=== PATIENT | female | born 1990 | race Two or more races ===

== ENCOUNTER → 2024-12-13 | Outpatient (CLI) | payer MEDICAID | END | disposition home or self-care (01) | LOC: LAB 09:35 | DX: Z34.80 Encounter for supervision of other normal pregnancy, unspecified trimester (principal); Z3A.00 Weeks of gestation of pregnancy not specified | CPT/HCPCS: 36415; 84702 ==

== ENCOUNTER → 2024-12-16 | Outpatient (CLI) | payer MEDICAID | END | disposition home or self-care (01) | LOC: LAB 15:37 | DX: Z34.80 Encounter for supervision of other normal pregnancy, unspecified trimester (principal); Z3A.00 Weeks of gestation of pregnancy not specified | CPT/HCPCS: 36415; 84702 ==

== ENCOUNTER → 2024-12-20 | Outpatient (CLI) | payer MEDICAID ==
[2024-12-20 10:54] LABS: Basophils # (auto) 0 10 ^3/uL (0-0.2); Basophils % (auto) 0.6 % (0.0-2.0); Eosinophils # (auto) 0 10 ^3/uL (0-0.8); Eosinophils % (auto) 0.5 % (0.0-7.0); Hematocrit 49.5 % (36.0-46.0); Hemoglobin 16.6 g/dL (12.2-16.2); Lymphocytes # (auto) 1.3 10 ^3/uL (0.4-5.4); Mean Corpuscular Hemoglobin 30.7 pg (28.0-32.0); Mean Corpuscular Hgb Conc. 33.6 g/dL (32.0-36.0); Mean Corpuscular Volume 91.3 fL (80.0-100.0); Monocytes # (auto) 0.4 10 ^3/uL (0-1.3); Monocytes % (auto) 5.6 % (0.0-12.0); Neutrophils # (auto) 5.6 10 ^3/uL (1.6-8.6); Neutrophils % (auto) 75.3 % (37.0-80.0); Nucleated Red Blood Cells % 0.1 %; Platelet Count (auto) 296 10^3/uL (140-450); Red Blood Cells 5.42 10^6/uL (4.0-5.20); Red Cell Distribution Width 12.9 % (11.8-14.3); White Blood Cell 7.5 10^3/uL (4.4-10.8)
[2024-12-20 11:16] LABS: Alanine Aminotransferase 13 U/L (7-40); Alkaline Phosphatase 101 U/L (46-116); Anion Gap 10 (5-15); BUN/Creatinine Ratio 8.3 (10.0-20.0); Carbon Dioxide 25 mmol/L (20-31); Chloride 100 mmol/L (98-107)
[2024-12-20 11:23] LABS: Aspartate Aminotransferase 11 U/L (13-40); Blood Urea Nitrogen 6 mg/dL (9-23); Calcium 11.2 mg/dL (8.7-10.4); Glucose 74 mg/dL (74-106); Sodium 135 mmol/L (136-145); Total Protein 8.9 g/dL (5.7-8.2)
[2024-12-20 11:24] LABS: Albumin 5.8 g/dL (3.2-4.8)
[2024-12-20 11:25] LABS: Bilirubin, Total 0.6 mg/dL (0.2-1.0)
[2024-12-20 11:28] LABS: Amphetamine Screen, Urine Neg (NEGATIVE); Barbiturate Scree,Urine Neg (NEGATIVE); Benzodiazephine Screen, Urine Neg (NEGATIVE); Cannabinoid Screen, Urine Neg (NEGATIVE); Cocaine Screen, Urine Neg (NEGATIVE); Opiate Scree,Urine Neg (NEGATIVE); Phencyclidine Screen, Urine Neg (NEGATIVE)
[2024-12-21 10:07] LABS: Varicella Zoster IgG Antibody Reactive (Non Reactive)
[2024-12-21 13:07] LABS: Chlamydia Trachomatis, NAA Negative (Negative); Neisseria gonorrhoeae, NAA Negative (Negative)
== END | disposition home or self-care (01) ==
LOC: LAB 09:41
DX: O23.40 Unspecified infection of urinary tract in pregnancy, unspecified trimester (principal); Z31.430 Encounter of female for testing for genetic disease carrier status for procreative management; Z36.0 Encounter for antenatal screening for chromosomal anomalies; N39.0 Urinary tract infection, site not specified; Z3A.00 Weeks of gestation of pregnancy not specified
CPT/HCPCS: 36415; 80053; 80307; 83036; 84439; 84443; 85025; 86703; 86762; 86780; 86787; 86850; 86900; 86901; 87086; 87902

== ENCOUNTER 2024-12-31 09:20 | Emergency (ER) | payer OTHER, MEDICAID ==
[~2024-12-31] VITALS: Ht 170.2 cm; Wt 67.1 kg
--- NOTE | 2024-12-31 10:36 | ED.PDOC ---
Eye-HPI HPI Comments A 34 YEAR OLD FEMALE PRESENTS TO THE ED WITH COMPLAINT OF SORE THROAT. PATIENT STATES SHE IS CURRENTLY 8 WEEKS AND HAS BEEN EXPERIENCING A SORE THROAT, CONGESTION, MILD COUGH, AND BODY ACHES FOR THE PAST 5 DAYS. PATIENT REPORTS SHE HAS ALSO BEEN EXPERIENCING SMALL AND HARD BOWEL MOVEMENTS FOR THE PAST 6 DAYS. PATIENT DENIES DYSURIA, HEMATURIA, FEVER, CHILLS, SHORTNESS OF BREATH, CHEST PAIN, ABDOMINAL PAIN, NAUSEA, VOMITING, HEADACHE, OR OTHER CO MPLAINTS. NO OTHER SYMPTOMS OR MODIFYING FACTORS AT THIS TIME. PATIENT IS ALERT, ORIENTED X 4, AND HAS STEADY GAIT. Chief Complaint: Flu like Time Seen by MD: 09:52 Reviewed Notes: Nurses Notes, Medications, Allergies Allergies: Coded Allergies: Azithromycin (Verified Allergy, Unknown, 12/31/24) Penicillins (Verified Allergy, Unknown, 12/31/24) Promethazine (Verified Allergy, Unknown, 12/31/24) Home Meds Active Scripts Lactulose (Lactulose) 10 Gm/15 Ml Melody, 30 ML PO BID, #250 ML Prov:NATALIE CAZARES 12/31/24 Cephalexin Monohydrate (Cephalexin) 500 Mg Cap, 1 CAP PO QID, #28 CAP Prov:NATALIE CAZARES 12/31/24 Information Source: Patient Mode of Arrival: Ambulatory Timing: Days Duration: Since onset, Days Prehospital treatment: None Quality: Pain, Red Lids: Normal Conjunctiva: Normal Cornea: Normal Pupils: Normal EOM: Normal Fundus: Normal Slit lamp exam: Normal Anterior chamber: Normal Mouth Location: Pharynx Mouth: Normal ENT Ear Exam: Normal, Normal, Normal Nose: Normal Sinuses: Normal Oropharynx: Tonsillar hypertrophy, Red Onset: Spontaneous Throat Exposed to: None History of: None Modifying factors: Nothing Associated signs and symptoms: Chills, Nasal Symptoms, Sore Throat Past Medical History PAST MEDICAL HISTORY: Denies Surgical History: Denies all surgeries OUT AND OUT CIGAR MAKER HAND History: No Pertinent OUT AND OUT CIGAR MAKER HAND History Family History Family History: Reviewed,noncontributory to illness Social History Smoker: Non-Smoker Alcohol: Denies ETOH Use Drugs: Denies Drug Use Lives In: Home Constitutional: denies: chills, diaphoresis, fatigue, fever, malaise, sweats, weakness, others EENTM: reports: nose congestion, throat pain, throat swelling; denies: blurred vision, double vision, ear bleeding, ear discharge, ear drainage, ear pain, ear ringing, eye pain, eye redness, hearing loss, mouth pain, mouth swelling, nasal discharge, nose bleeding, nose pain, photophobia, tearing, voice changes, others Respiratory: reports: cough; denies: hemoptysis, orthopnea, SOB at rest, shortness of breath, SOB with excertion, stridor, wheezing, others Cardiovascular: denies: chest pain, dizzy spells, diaphoresis, Dyspnea on exertion, edema, irregular heart beat, left arm pain, lightheadedness, palpitations, PND, syncope, others Gastrointestinal: reports: constipated; denies: abdomen distended, abdominal pain, blood streaked bowels, diarrhea, dysphagia, difficulty swallowing, hematemesis, melena, nausea, poor appetite, poor fluid intake, rectal bleeding, rectal pain, vomiting, others Genitourinary: reports: ; denies: abnormal vagina bleeding, burning, dyspareunia, dysuria, flank pain, frequency, hematuria, incontinence, pain, vagina discharge, urgency, others Neurological: denies: dizziness, fainting, headache, left sided numbness, left sided weakness, numbness, paresthesia, pre-existing deficit, right sided numbness, right sided weakness, seizure, speech problems, tingling, tremors, weakness, others Musculoskeletal: denies: back pain, gout, joint pain, joint swelling, muscle pain, muscle stiffness, neck pain, others Integumetry: denies: bruises, change in color, change in hair/nails, dryness, laceration, lesions, lumps, rash, wounds, others Allergic/Immunocompromised: denies: Difficulty Healing, Frequent Infections, Hives, Itching, others Hematologic/Lymphatic: denies: anemia, blood clots, easy bleeding, easy bruising, swollen glands, others Endocrine: denies: excessive hunger, excessive sweating, excessive thirst, excessive urination, flushing, intolerance to cold, intolerance to heat, unexplained weight gain, unexplained weight loss, others Psychiatric: denies: anxiety, bipolar disorder, depression, hopeless, panic disorder, schizophrenia, sleepless, suicidal, others All Other Systems: Reviewed and Negative Physical Exam General Appearance: No Apparent Distress, Normal HEENT: PERRL/EOMI, Pharyngeal Erythema (TONSILLAR SWELLING, NO EXUDATES. ), TMs Normal Neck: Full Range of Motion, Non-Tender, Normal, Normal Inspection Respiratory: Chest Non-Tender, Lungs Clear, No Accessory Muscle Use, No Respiratory Distress, Normal Breath Sounds Cardiovascular: No Edema, No JVD, No Murmur, No Gallop, Normal Peripheral Pulses, Regular Rate/Rhythm Breast Exam: Deferred Gastrointestinal: No Organomegaly, Non Tender, No Pulsatile Mass, Normal Bowel Sounds, Soft Genitalia: Deferred Pelvic: Deferred Rectal: Deferred Extremities: No calf tenderness, Normal capillary refill, Normal inspection, Normal range of motion, Non-tender, No pedal edema Musculoskeletal : Apperance: Normal Neurologic: Alert, case work aide II-XII nml as Tested, No Motor Deficits, Normal Affect, Normal Mood, No Sensory Deficits Cerebellar Function: Normal Reflexes: Normal Skin: Dry, Normal Color, Warm Peripheral Pulses: 2+ carotid (R), 2+ carotid (L) Lymphatic: No Adenopathy Was a procedure done? Was a procedure done?: No EENT DIFF Eye: N/A Ear: Otitis Media, Pharyngitis, Sinusitis Nose: N/A Mouth: N/A Sore Throat: Pharyngitis, Streptococcal, Viral Pharyngitis, URI X-Ray, Labs, Meds, VS Vital Signs Date Time Temp Pulse Resp B/P (MAP) Pulse Ox O2 Delivery O2 Flow Rate FiO2 12/31/24 10:58 98.7 87 16 105/68 (80) 97 98.7 12/31/24 10:58 78 17 98 Room Air 12/31/24 09:51 99.0 90 18 91/67 (75) 97 99.0 Lab Test 12/31/24 11:45 12/31/24 11:30 12/31/24 10:47 Range/Units White Blood Count 4.9 4.4-10.8 10^3/uL Red Blood Count 4.98 4.0-5.20 10^6/uL Hemoglobin 15.1 12.2-16.2 g/dL Hematocrit 44.7 36.0-46.0 % Mean Corpuscular Volume 89.8 80.0-100.0 fL Mean Corpuscular Hemoglobin 30.4 28.0-32.0 pg Mean Corpuscular Hemoglobin Concent 33.8 32.0-36.0 g/dL Red Cell Distribution Width 12.7 11.8-14.3 % Platelet Count 291 140-450 10^3/uL Mean Platelet Volume 8.1 6.9-10.8 fL Neutrophils (%) (Auto) 68.6 37.0-80.0 % Lymphocytes (%) (Auto) 22.1 10.0-50.0 % Monocytes (%) (Auto) 8.6 0.0-12.0 % Eosinophils (%) (Auto) 0.3 0.0-7.0 % Basophils (%) (Auto) 0.4 0.0-2.0 % Neutrophils # (Auto) 3.4 1.6-8.6 10 ^3/uL Lymphocytes # (Auto) 1.1 0.4-5.4 10 ^3/uL Monocytes # (Auto) 0.4 0-1.3 10 ^3/uL Eosinophils # (Auto) 0 0-0.8 10 ^3/uL Basophils # (Auto) 0 0-0.2 10 ^3/uL Nucleated Red Blood Cells 0.1 % Sodium Level 137 136-145 mmol/L Potassium Level 3.8 3.5-5.1 mmol/L Chloride Level 105 98-107 mmol/L Carbon Dioxide Level 23 20-31 mmol/L Anion Gap 9 5-15 Blood Urea Nitrogen 5 L 9-23 mg/dL Creatinine 0.64 0.550-1.02 mg/dL Glomerular Filtration Rate Calc 119 >90 mL/min BUN/Creatinine Ratio 7.8 L 10.0-20.0 Serum Glucose 85 74-106 mg/dL Calcium Level 9.8 8.7-10.4 mg/dL Urine Color Light-yellow Yellow Urine Clarity Turbid H Clear Urine pH 7.0 5.0-9.0 Urine Specific [place] 1.023 1.001-1.035 Urine Protein Negative Negative Urine Ketones Trace Negative Urine Blood Negative Negative /uL Urine Nitrite 2+ H Negative Urine Bilirubin Negative Negative Urine Urobilinogen Normal Negative mg/dL Urine Leukocyte Esterase 3+ Negative /uL Urine RBC 4 0 - 4 /hpf Urine Microscopic WBC 101 H 0-5 /HPF Urine Squamous Epithelial Cells Few <5 /hpf Urine Bacteria Few H None Seen /hpf Urine Mucus Few None Seen Urine Glucose Normal Normal mg/dL Influenza Type A Antigen Negative Negative Influenza Type B Antigen Negative Negative SARS-CoV-2 Antigen (Rapid) Negative NEGATIVE Group A Streptococcus Rapid Negative Current Medications Medications (Trade) Dose Ordered Sig/Amirah Route Start Time Stop Time Status Last Admin Sodium Chloride 1,000 ml @ 1,000 mls/hr Q1H ONCE IV 12/31/24 11:00 12/31/24 11:59 DC 12/31/24 11:02 Ondansetron HCl (Zofran) 4 mg ONCE ONCE IV 12/31/24 11:30 12/31/24 11:31 DC 12/31/24 11:58 X-Ray, Labs, Meds, VS Comment EXTERNAL MEDICAL RECORDS REVIEWED: [NONE] INDEPENDENT HISTORIANS: [NONE] SOCIAL DETERMINANTS OF HEALTH: [NONE] LABS ORDERED: COVID-19 ANTIGEN, INFLUENZA A/B, STREP A RAPID REVIEWED AND INTERPRETED RESULTS: IMAGING ORDERED: NONE TREATMENTS ORDERED: ROCEPHIN 1 G IM, 0.9NS 1L IV BOLUS PROCEDURES PERFORMED: NONE CRITICAL CARE TIME: NONE I HAVE DISCUSSED THE PATIENT WITH THE ATTENDING PHYSICIAN DR. GATES AND SHE AGREES WITH THE PATIENT'S PLAN OF CARE AND DISPOSITION. BASED ON HISTORY OF PRESENT ILLNESS, AND PHYSICAL EXAM, PATIENT WILL BE DISCHARGED HOME. DISCUSSED PLAN FOR DISCHARGE HOME WITH RX: KEFLEX AND LACTULOSE. MEDICATION WARNINGS GIVEN. SHARED DECISION MAKING: PATIENT INSTRUCTED TO FOLLOW UP WITH PRIMARY CARE PROVIDER IN 1-2 DAYS FOR RE-EVALUATION OF SYMPTOMS. PATIENT VERBALIZES UNDERSTANDING TO RETURN TO ED FOR NEW OR WORSENING SYMPTOMS OR IF FOLLOW UP WITH PCP CANNOT BE OBTAINED. PATIENT FEELS COMFORTABLE GOING HOME AT THIS TIME. ALL QUESTIONS ADDRESSED AT TIME OF DISCHARGE. Time of 1ST Reevaluation: 13:00 Reevaluation 1ST: Improved Patient Education/Counseling: Diagnosis, Treatment, Need For Follow Up Family Education/Counseling: Diagnosis, Treatment, Need For Follow Up Medical Screening: No EMC Exist At This Time Departure 1 Departure Time of Disposition: 13:00 Impression: Primary Impression: Acute tonsillitis Qualified Codes: J03.90 - Acute tonsillitis, unspecified Additional Impression: UTI (urinary tract infection) Qualified Codes: N30.00 - Acute cystitis without hematuria Disposition: 01 HOME / SELF CARE / HOMELESS Condition: Stable Additional Instructions: FOLLOW-UP WITH PCP AND FOOD MIXER REPAIRER IN 1 TO 2 DAYS. TAKE MEDICATIONS PRESCRIBED. RETURN TO ED FOR ANY NEW OR WORSENING SYMPTOMS. e-Prescriptions Lactulose (Lactulose) 10 Gm/15 Ml Melody 30 ML PO BID, #250 ML Prov: NATALIE CAZARES 12/31/24 Cephalexin Monohydrate (Cephalexin) 500 Mg Cap 1 CAP PO QID, #28 CAP Prov: NATALIE CAZARES 12/31/24 Discharged With: Self Critical Care Note Critical Care Time?: No Stability Stability form required: No I personally scribed for NATALIE CAZARES ([email or web address]) on 12/31/24 at 10:36. Electronically submitted by lAl Rivas ([email or web address]). NATALIE CAZARES Dec 31, 2024 10:36
[2024-12-31 10:58] VITALS: BP 105/68; PULSE 78; RESP 17; TEMP 98.7; O2SAT 98
[2024-12-31] MEDS: SODIUM CHLORIDE 0.9% 1,000 ML IV ONE (11:02)
[2024-12-31 11:55] LABS: Rapid Strep A Screen-Throat Negative
[2024-12-31 11:56] LABS: Urine Bacteria FEW /hpf (None Seen); Urine Blood Negative /uL (Negative); Urine Clarity Turbid (Clear); Urine Color Light-Yellow (Yellow); Urine Mucus FEW (None Seen); Urine Protein, UAD Negative (Negative); Urine Specific Gravity 1.023 (1.001-1.035); Urine Squamous Epithelial Cell FEW /hpf (<5); Urine Urobilinogen Normal (Negative); Urine WBC 101 /HPF (0-5)
[2024-12-31] MEDS: ONDANSETRON HCL 4 MG/2 ML VIAL IV ONE (11:58)
[2024-12-31 12:02] LABS: COVID19 ANTIGEN SOFIA FIA NEGATIVE (NEGATIVE)
[2024-12-31 12:03] LABS: Rapid Influenza A Negative (Negative); Rapid Influenza B Negative (Negative)
[2024-12-31 12:09] LABS: Chloride 105 mmol/L (98-107); Potassium 3.8 mmol/L (3.5-5.1); Sodium 137 mmol/L (136-145)
[2024-12-31 12:10] LABS: Anion Gap 9 (5-15); Calcium 9.8 mg/dL (8.7-10.4); Carbon Dioxide 23 mmol/L (20-31)
[2024-12-31 12:15] LABS: BUN/Creatinine Ratio 7.8 (10.0-20.0); Glucose 85 mg/dL (74-106)
[2024-12-31 12:16] LABS: Blood Urea Nitrogen 5 mg/dL (9-23)
[2024-12-31 12:32] LABS: Basophils # (auto) 0 10 ^3/uL (0-0.2); Basophils % (auto) 0.4 % (0.0-2.0); Eosinophils # (auto) 0 10 ^3/uL (0-0.8); Eosinophils % (auto) 0.3 % (0.0-7.0); Hematocrit 44.7 % (36.0-46.0); Hemoglobin 15.1 g/dL (12.2-16.2); Lymphocytes # (auto) 1.1 10 ^3/uL (0.4-5.4); Lymphocytes % (auto) 22.1 % (10.0-50.0); Mean Corpuscular Hemoglobin 30.4 pg (28.0-32.0); Mean Corpuscular Hgb Conc. 33.8 g/dL (32.0-36.0); Mean Corpuscular Volume 89.8 fL (80.0-100.0); Monocytes # (auto) 0.4 10 ^3/uL (0-1.3); Monocytes % (auto) 8.6 % (0.0-12.0); Neutrophils # (auto) 3.4 10 ^3/uL (1.6-8.6); Neutrophils % (auto) 68.6 % (37.0-80.0); Nucleated Red Blood Cells % 0.1 %; Platelet Count (auto) 291 10^3/uL (140-450); Red Blood Cells 4.98 10^6/uL (4.0-5.20); Red Cell Distribution Width 12.7 % (11.8-14.3); White Blood Cell 4.9 10^3/uL (4.4-10.8)
[2024-12-31] MEDS: cefTRIAXone 1GM/50ML D5W 50 ML IV ONE (12:37)
[2024-12-31] MEDS ORDERED: CEPH500C PO (12:41)
[2024-12-31] MEDS ORDERED: LACT10SO3 PO (12:41)
== END 2024-12-31 13:00 | disposition home or self-care (01) ==
LOC: ER 09:20
DX: O99.511 Diseases of the respiratory system complicating pregnancy, first trimester (principal); J03.90 Acute tonsillitis, unspecified; O23.41 Unspecified infection of urinary tract in pregnancy, first trimester; N39.0 Urinary tract infection, site not specified; Z3A.08 8 weeks gestation of pregnancy; Z88.0 Allergy status to penicillin; Z88.1 Allergy status to other antibiotic agents; Z88.8 Allergy status to other drugs, medicaments and biological substances; Z20.822 Contact with and (suspected) exposure to COVID-19
CPT/HCPCS: 36415; 80048; 81001; 85025; 87070; 87426; 87804; 87880; 96361; 96374; 99283; J2405; J7030

== ENCOUNTER 2025-01-06 09:48 | Emergency (ER) | payer OTHER, MEDICAID ==
[~2025-01-06] VITALS: Ht 170.2 cm; Wt 67.5 kg
[~2025-01-06 09:48] MED LIST: CEPH500C PO; LACT10SO3 PO
--- NOTE | 2025-01-06 10:50 | ED.PDOC ---
GI ASSESSMENT HPI Comments A 34 YEAR OLD FEMALE PRESENTS TO THE ED WITH CHIEF COMPLAINT OF CONSTIPATION. PATIENT REPORTS THAT SHE HAS BEEN EXPERIENCING NAUSEA, VOMITING, AND CONSTIPATION FOR THE PAST WEEK. PATIENT RELAYS THAT SHE WAS SEEN LAST WEEK FOR THE SAME COMPLAINTS, BEING PRESCRIBED KEFLEX FOR A UTI AND LACTULOSE FOR HER CONSTIPATION, BUT STILL NO BOWEL MOVEMENT SINCE THEN. PATIENT STATES THAT SHE HAD NOTICED THAT THIS MORNING HER VOMIT HAD TASTED LIKE STOOL. PATIENT NOTES SHE IS CURRENTLY 9 WEEKS . PATIENT DENIES ANY DIARRHEA, FEVER, CHILLS, ABDOMINAL PAIN, VOMITING OF BLOOD, DIZZINESS, OR HEADACHE. NO OTHER SYMPTOMS REPORTED AT THIS TIME OF CARE. Chief Complaint: Constipation Time Seen by MD: 10:38 Primary Care Provider: LAY Mcnamara Notes: Nurses Notes, Medications, Allergies Allergies: Coded Allergies: Azithromycin (Verified Allergy, Unknown, 12/31/24) Penicillins (Verified Allergy, Unknown, 12/31/24) Promethazine (Verified Allergy, Unknown, 12/31/24) Home Meds Active Scripts Lactulose (Lactulose) 10 Gm/15 Ml Melody, 30 ML PO BID, #250 ML Prov:NATALIE CAZARES 12/31/24 Cephalexin Monohydrate (Cephalexin) 500 Mg Cap, 1 CAP PO QID, #28 CAP Prov:NATALIE CAZARES 12/31/24 Information Source: Patient Mode of Arrival: Ambulatory Timing: Days Duration: Since onset Prehospital treatment: None Quality: Cramping Vomitus: Watery, Other (BROWN) Stool: Impaction Severity: Moderate Recent: None Recent Hx of: Current Pain Location: None Modifying Factors: Nothing Associated sign and symptoms: Nausea, Vomiting, Constipation Past Medical History PAST MEDICAL HISTORY: Denies Surgical History: Denies all surgeries GRANT MANAGER History: No Pertinent GRANT MANAGER History Family History Family History: Reviewed,noncontributory to illness Social History Smoker: Non-Smoker Alcohol: Denies ETOH Use Drugs: Denies Drug Use Lives In: Home Constitutional: denies: chills, diaphoresis, fatigue, fever, malaise, sweats, weakness, others EENTM: denies: blurred vision, double vision, ear bleeding, ear discharge, ear drainage, ear pain, ear ringing, eye pain, eye redness, hearing loss, mouth pain, mouth swelling, nasal discharge, nose bleeding, nose congestion, nose pain, photophobia, tearing, throat pain, throat swelling, voice changes, others Respiratory: denies: cough, hemoptysis, orthopnea, SOB at rest, shortness of breath, SOB with excertion, stridor, wheezing, others Cardiovascular: denies: chest pain, dizzy spells, diaphoresis, Dyspnea on exertion, edema, irregular heart beat, left arm pain, lightheadedness, palpitations, PND, syncope, others Gastrointestinal: reports: constipated, nausea, vomiting; denies: abdomen distended, abdominal pain, blood streaked bowels, diarrhea, dysphagia, difficulty swallowing, hematemesis, melena, poor appetite, poor fluid intake, rectal bleeding, rectal pain, others Genitourinary: reports: ; denies: abnormal vagina bleeding, burning, dyspareunia, dysuria, flank pain, frequency, hematuria, incontinence, pain, vagina discharge, urgency, others Neurological: denies: dizziness, fainting, headache, left sided numbness, left sided weakness, numbness, paresthesia, pre-existing deficit, right sided numbness, right sided weakness, seizure, speech problems, tingling, tremors, weakness, others Musculoskeletal: denies: back pain, gout, joint pain, joint swelling, muscle pain, muscle stiffness, neck pain, others Integumetry: denies: bruises, change in color, change in hair/nails, dryness, laceration, lesions, lumps, rash, wounds, others Allergic/Immunocompromised: denies: Difficulty Healing, Frequent Infections, Hives, Itching, others Hematologic/Lymphatic: denies: anemia, blood clots, easy bleeding, easy bruising, swollen glands, others Endocrine: denies: excessive hunger, excessive sweating, excessive thirst, excessive urination, flushing, intolerance to cold, intolerance to heat, unexplained weight gain, unexplained weight loss, others Psychiatric: denies: anxiety, bipolar disorder, depression, hopeless, panic disorder, schizophrenia, sleepless, suicidal, others All Other Systems: Reviewed and Negative Physical Exam General Appearance: No Apparent Distress, Normal HEENT: Normal ENT Inspection, PERRL/EOMI, Pharynx Normal Neck: Full Range of Motion, Non-Tender, Normal, Normal Inspection Respiratory: Chest Non-Tender, Lungs Clear, No Accessory Muscle Use, No Respiratory Distress, Normal Breath Sounds Cardiovascular: No Edema, No JVD, No Murmur, No Gallop, Normal Peripheral Pulses, Regular Rate/Rhythm Breast Exam: Deferred Gastrointestinal: No Organomegaly, Non Tender, No Pulsatile Mass, Normal Bowel Sounds, Soft Genitalia: Deferred Pelvic: Deferred Rectal: Deferred Extremities: No calf tenderness, Normal capillary refill, Normal inspection, Normal range of motion, Non-tender, No pedal edema Musculoskeletal : Apperance: Normal Neurologic: Alert, grants administrator II-XII nml as Tested, No Motor Deficits, Normal Affect, Normal Mood, No Sensory Deficits Cerebellar Function: Normal Reflexes: Normal Skin: Dry, Normal Color, Warm Peripheral Pulses: 2+ carotid (R), 2+ carotid (L) Lymphatic: No Adenopathy Was a procedure done? Was a procedure done?: No GI differential Dx Differential Diagnosis: Constipation, Gastritis/PUD, Gastroenteritis, UTI, , Other (VOMITING OF ) X-Ray, Labs, Meds, VS Vital Signs Date Time Temp Pulse Resp B/P (MAP) Pulse Ox O2 Delivery O2 Flow Rate FiO2 01/06/25 10:54 84 18 97 Room Air 01/06/25 10:54 98.4 84 18 110/62 (78) 97 98.4 01/06/25 10:23 98.2 91 17 101/59 (73) 96 98.2 Lab Test 01/06/25 11:21 01/06/25 10:44 Range/Units Urine Color Yellow Yellow Urine Clarity Clear Clear Urine pH 7.0 5.0-9.0 Urine Specific [place] 1.025 1.001-1.035 Urine Protein Negative Negative Urine Ketones Trace Negative Urine Blood Negative Negative /uL Urine Nitrite Negative Negative Urine Bilirubin Negative Negative Urine Urobilinogen Normal Negative mg/dL Urine Leukocyte Esterase 2+ Negative /uL Urine RBC 3 0 - 4 /hpf Urine Microscopic WBC 10 H 0-5 /HPF Urine Squamous Epithelial Cells Few <5 /hpf Urine Bacteria Few H None Seen /hpf Urine Mucus Few None Seen Urine Glucose Normal Normal mg/dL White Blood Count 7.5 # 4.4-10.8 10^3/uL Red Blood Count 4.76 4.0-5.20 10^6/uL Hemoglobin 14.5 12.2-16.2 g/dL Hematocrit 42.6 36.0-46.0 % Mean Corpuscular Volume 89.5 80.0-100.0 fL Mean Corpuscular Hemoglobin 30.5 28.0-32.0 pg Mean Corpuscular Hemoglobin Concent 34.1 32.0-36.0 g/dL Red Cell Distribution Width 12.8 11.8-14.3 % Platelet Count 304 140-450 10^3/uL Mean Platelet Volume 7.6 6.9-10.8 fL Neutrophils (%) (Auto) 76.0 37.0-80.0 % Lymphocytes (%) (Auto) 16.3 10.0-50.0 % Monocytes (%) (Auto) 7.1 0.0-12.0 % Eosinophils (%) (Auto) 0.3 0.0-7.0 % Basophils (%) (Auto) 0.3 0.0-2.0 % Neutrophils # (Auto) 5.7 1.6-8.6 10 ^3/uL Lymphocytes # (Auto) 1.2 0.4-5.4 10 ^3/uL Monocytes # (Auto) 0.5 0-1.3 10 ^3/uL Eosinophils # (Auto) 0 0-0.8 10 ^3/uL Basophils # (Auto) 0 0-0.2 10 ^3/uL Nucleated Red Blood Cells 0.0 % Sodium Level 134 L 136-145 mmol/L Potassium Level 4.2 3.5-5.1 mmol/L Chloride Level 105 98-107 mmol/L Carbon Dioxide Level 25 20-31 mmol/L Anion Gap 4 L 5-15 Blood Urea Nitrogen 7 L 9-23 mg/dL Creatinine 0.64 0.550-1.02 mg/dL Glomerular Filtration Rate Calc 119 >90 mL/min BUN/Creatinine Ratio 10.9 10.0-20.0 Serum Glucose 81 74-106 mg/dL Calcium Level 10.6 H 8.7-10.4 mg/dL Beta HCG, Quantitative > 744798.0 H 1.5-4.2 mIU/mL Current Medications Medications (Trade) Dose Ordered Sig/Amirah Route Start Time Stop Time Status Last Admin Sodium Chloride 1,000 ml @ 1,000 mls/hr Q1H ONCE IV 01/06/25 11:00 01/06/25 11:59 DC 01/06/25 11:17 OB US: FINDINGS: The uterus measures 13 x 7 x 10 cm The cervix was not seen Right ovary measures 2 x 2 x 1 cm with normal Doppler color flow IUP single live fetus at 10 weeks 1 day average ultrasound age based on mean crown-rump length of 2.5 cm and gestational sac size of 5.2 cm heart rate detected at 176 beats per minute. IMPRESSION: IUP single live fetus 10 weeks 1 day AUA corresponding to an LENORE of 08-03-25. No acute abnormality detected. Possible 2 cm fibroid noted. X-Ray, Labs, Meds, VS Comment EXTERNAL MEDICAL RECORDS REVIEWED: [NONE] INDEPENDENT HISTORIANS: [NONE] SOCIAL DETERMINANTS OF HEALTH: [NONE] LABS ORDERED: CBC, BMP, UA, UDS REVIEWED AND INTERPRETED RESULTS: OB US IMAGING ORDERED: OB US TREATMENTS ORDERED: NS 1L IV, ZOFRAN 4MG IV AND ROCEPHIN 1GM IVPB PROCEDURES PERFORMED: NONE CRITICAL CARE TIME: NONE I HAVE DISCUSSED THE PATIENT WITH THE ATTENDING PHYSICIAN DR. STEPHENS AND HE AGREES WITH THE PATIENT'S PLAN OF CARE AND DISPOSITION. BASED ON HISTORY OF PRESENT ILLNESS, AND PHYSICAL EXAM, PATIENT WILL BE DISCHARGED HOME. DISCUSSED PLAN FOR DISCHARGE HOME WITH RX [ZOFRAN AND LACTULOSE]. MEDICATION WARNINGS GIVEN. SHARED DECISION MAKING: DISCUSSED WITH PATIENT THAT THEIR WORKUP WAS NORMAL. PATIENT INSTRUCTED TO FOLLOW UP WITH PRIMARY CARE PROVIDER IN 1-2 DAYS FOR RE-EVALUATION OF SYMPTOMS. PATIENT VERBALIZES UNDERSTANDING TO RETURN TO ED FOR NEW OR WORSENING SYMPTOMS OR IF FOLLOW UP WITH PCP CANNOT BE OBTAINED. PATIENT FEELS COMFORTABLE GOING HOME AT THIS TIME. ALL QUESTIONS ADDRESSED AT TIME OF DISCHARGE. Time of 1ST Reevaluation: 11:38 Reevaluation 1ST: Improved Patient Education/Counseling: Diagnosis, Treatment, Need For Follow Up Family Education/Counseling: Diagnosis, Treatment, No Family Present Medical Screening: No EMC Exist At This Time Departure 1 Departure Time of Disposition: 13:00 Impression: Primary Impression: Hyperemesis of Additional Impressions: Constipation Qualified Codes: K59.00 - Constipation, unspecified Normal in first trimester Uterine fibroid Qualified Codes: D25.9 - Leiomyoma of uterus, unspecified UTI (urinary tract infection) Qualified Codes: N30.00 - Acute cystitis without hematuria Disposition: 01 HOME / SELF CARE / HOMELESS Condition: Stable Additional Instructions: FOLLOW-UP WITH NEWS SPECIALIST IN 1 TO 2 DAYS. TAKE MEDICATIONS PRESCRIBED. RETURN TO ED FOR ANY NEW OR WORSENING SYMPTOMS. e-Prescriptions Lactulose (Lactulose) 10 Gm/15 Ml Melody 30 ML PO BID PRN, #300 ML Prov: NATALIE CAZARES 01/06/25 Ondansetron Odt 4MG Tab (ZOFRAN PO) 4 Mg Tb 4 MG PO BID, #20 TAB ODT TAB-DISSOLVE IN MOUTH, THEN SWALLOW Prov: NATALIE CAZARES 01/06/25 Discharged With: Self Critical Care Note Critical Care Time?: No Stability Stability form required: No Heart Score Heart Score: Heart Score Response (Comments) Value History N/A 0 EKG N/A 0 Age N/A 0 Risk Factors N/A 0 Troponin N/A 0 Total 0 I personally scribed for NATALIE CAZARES ([email or web address]) on 01/06/25 at 10:50. Electronically submitted by Chuck Sylvester ([email or web address]). I personally scribed for NATALIE CAZARES ([email or web address]) on 01/06/25 at 10:50. Electronically submitted by Chuck Sylvester ([email or web address]). I personally scribed for NATALIE CAZARES ([email or web address]) on 01/06/25 at 12:18. Electronically submitted by Chuck Sylvester ([email or web address]). NATALIE CAZARES January 06, 2025 10:50
[2025-01-06 11:02] LABS: Basophils # (auto) 0 10 ^3/uL (0-0.2); Basophils % (auto) 0.3 % (0.0-2.0); Eosinophils # (auto) 0 10 ^3/uL (0-0.8); Eosinophils % (auto) 0.3 % (0.0-7.0); Hematocrit 42.6 % (36.0-46.0); Hemoglobin 14.5 g/dL (12.2-16.2); Lymphocytes # (auto) 1.2 10 ^3/uL (0.4-5.4); Lymphocytes % (auto) 16.3 % (10.0-50.0); Mean Corpuscular Hemoglobin 30.5 pg (28.0-32.0); Mean Corpuscular Hgb Conc. 34.1 g/dL (32.0-36.0); Mean Corpuscular Volume 89.5 fL (80.0-100.0); Monocytes # (auto) 0.5 10 ^3/uL (0-1.3); Monocytes % (auto) 7.1 % (0.0-12.0); Neutrophils # (auto) 5.7 10 ^3/uL (1.6-8.6); Platelet Count (auto) 304 10^3/uL (140-450); Red Blood Cells 4.76 10^6/uL (4.0-5.20); Red Cell Distribution Width 12.8 % (11.8-14.3); White Blood Cell 7.5 10^3/uL (4.4-10.8)
[2025-01-06 11:06] LABS: Chloride 105 mmol/L (98-107); Potassium 4.2 mmol/L (3.5-5.1)
[2025-01-06 11:07] LABS: Anion Gap 4 (5-15); Carbon Dioxide 25 mmol/L (20-31)
[2025-01-06 11:08] LABS: Calcium 10.6 mg/dL (8.7-10.4); Sodium 134 mmol/L (136-145)
[2025-01-06 11:12] LABS: BUN/Creatinine Ratio 10.9 (10.0-20.0); Blood Urea Nitrogen 7 mg/dL (9-23); Glucose 81 mg/dL (74-106)
[2025-01-06] MEDS: ONDANSETRON HCL 4 MG/2 ML VIAL IV ONE (11:17)
[2025-01-06] MEDS: SODIUM CHLORIDE 0.9% 1,000 ML IV ONE (11:17)
--- NOTE | 2025-01-06 12:11 | DVH ---
OB ULTRASOUND <14 WEEKS: HISTORY: PELVIC CRAMPS WITH CONSTIPATION TECHNIQUE: Multiple real-time grayscale sonographic images of the pelvis with duplex Doppler color f low, spectral and M-mode analysis. TRANSDUCERS: Transabdominal FINDINGS: The uterus measures 13 x 7 x 10 cm The cervix was not seen Right ovary measures 2 x 2 x 1 cm with normal Doppler color flow IUP single live fetus at 10 weeks 1 day average ultrasound age based on mean crown-rump length of 2. 5 cm and gestational sac size of 5.2 cm heart rate detected at 176 beats per minute. IMPRESSION: IUP single live fetus 10 weeks 1 day AUA corresponding to an LENORE of 11-26-25. No acute abnormality detected. Possible 2 cm fibroid noted.
[2025-01-06 12:15] LABS: Urine Bacteria FEW /hpf (None Seen); Urine Blood Negative /uL (Negative); Urine Clarity Clear (Clear); Urine Color Yellow (Yellow); Urine Mucus FEW (None Seen); Urine Protein, UAD Negative (Negative); Urine Specific Gravity 1.025 (1.001-1.035); Urine Squamous Epithelial Cell FEW /hpf (<5); Urine Urobilinogen Normal (Negative); Urine WBC 10 /HPF (0-5)
[2025-01-06] MEDS: cefTRIAXone SOD 1,000 MG VL IM ONE (12:27)
[2025-01-06] MEDS ORDERED: ZOFR4T PO (12:50)
[2025-01-06 13:10] VITALS: BP 108/74; PULSE 88; RESP 16; TEMP 97.9; O2SAT 97
== END 2025-01-06 13:08 | disposition home or self-care (01) ==
LOC: ER 09:48
DX: O21.9 Vomiting of pregnancy, unspecified (principal); O34.11 Maternal care for benign tumor of corpus uteri, first trimester; D25.9 Leiomyoma of uterus, unspecified; O99.611 Diseases of the digestive system complicating pregnancy, first trimester; K59.00 Constipation, unspecified; O23.41 Unspecified infection of urinary tract in pregnancy, first trimester; N39.0 Urinary tract infection, site not specified; Z3A.10 10 weeks gestation of pregnancy; Z88.0 Allergy status to penicillin; Z88.1 Allergy status to other antibiotic agents
CPT/HCPCS: 36415; 76801; 80048; 81001; 84702; 85025; 96360; 99284; J2405; J7030; J0696

== ENCOUNTER → 2025-01-17 | Outpatient (CLI) | payer OTHER, MEDICAID ==
[~2025-01-17] MED LIST changes: +ZOFR4T PO
== END | disposition home or self-care (01) ==
LOC: LAB 09:40
DX: Z34.81 Encounter for supervision of other normal pregnancy, first trimester (principal); Z3A.10 10 weeks gestation of pregnancy; Z79.899 Other long term (current) drug therapy
CPT/HCPCS: 36415; 84443; 86850; 86900; 86901; 87340

== ENCOUNTER 2025-01-25 12:19 | Emergency (ER) | payer OTHER, MEDICAID ==
[~2025-01-25] VITALS: Ht 170.2 cm; Wt 68.3 kg
--- NOTE | 2025-01-25 12:48 | ED.PDOC ---
GI ASSESSMENT HPI Comments 34-year-old female with no reported PMHx presents with a chief complaint of nausea, vomiting, and current . Patient is roughly 13 weeks , . Patient mentions that she has been having a lot of nausea and having multiple vomiting episodes. Patient reports that she has been unable to keep anything down. Patient has decreased bowel sounds on exam. Chief Complaint: Nausea/Vomiting Time Seen by MD: 12:38 Primary Care Provider: LAY Mcnamara Notes: Medications, Allergies Allergies: Coded Allergies: Azithromycin (Verified Allergy, Unknown, 12/31/24) Penicillins (Verified Allergy, Unknown, 12/31/24) Promethazine (Verified Allergy, Unknown, 12/31/24) Home Meds Active Scripts Lactulose (Lactulose) 10 Gm/15 Ml Melody, 30 ML PO BID PRN, #300 ML Prov:NATALIE CAZARES 01/06/25 Ondansetron Odt 4MG Tab (ZOFRAN PO) 4 Mg Tb, 4 MG PO BID, #20 TAB ODT TAB-DISSOLVE IN MOUTH, THEN SWALLOW Prov:NATALIE CAZARES 01/06/25 Lactulose (Lactulose) 10 Gm/15 Ml Melody, 30 ML PO BID, #250 ML Prov:NATALIE CAZARES 12/31/24 Cephalexin Monohydrate (Cephalexin) 500 Mg Cap, 1 CAP PO QID, #28 CAP Prov:NATALIE CAZARES 12/31/24 Information Source: Patient Mode of Arrival: Ambulatory Timing: Hours Duration: Since onset Prehospital treatment: None Quality: None Vomitus: Food Particles Stool: Normal Severity: Moderate Recent: None Recent Hx of: Current Associated sign and symptoms: Nausea, Vomiting Past Medical History PAST MEDICAL HISTORY: Denies Surgical History: Denies all surgeries BONDERIZER History: No Pertinent BONDERIZER History Family History Family History: Reviewed,noncontributory to illness Social History Smoker: Non-Smoker Alcohol: Denies ETOH Use Drugs: Denies Drug Use Lives In: Home Constitutional: denies: chills, diaphoresis, fatigue, fever, malaise, sweats, weakness, others EENTM: denies: blurred vision, double vision, ear bleeding, ear discharge, ear drainage, ear pain, ear ringing, eye pain, eye redness, hearing loss, mouth pain, mouth swelling, nasal discharge, nose bleeding, nose congestion, nose pain, photophobia, tearing, throat pain, throat swelling, voice changes, others Respiratory: denies: cough, hemoptysis, orthopnea, SOB at rest, shortness of breath, SOB with excertion, stridor, wheezing, others Cardiovascular: denies: chest pain, dizzy spells, diaphoresis, Dyspnea on exertion, edema, irregular heart beat, left arm pain, lightheadedness, palpitations, PND, syncope, others Gastrointestinal: reports: nausea, vomiting; denies: abdomen distended, abdominal pain, blood streaked bowels, constipated, diarrhea, dysphagia, difficulty swallowing, hematemesis, melena, poor appetite, poor fluid intake, rectal bleeding, rectal pain, others Genitourinary: reports: ; denies: abnormal vagina bleeding, burning, dyspareunia, dysuria, flank pain, frequency, hematuria, incontinence, pain, vagina discharge, urgency, others Neurological: denies: dizziness, fainting, headache, left sided numbness, left sided weakness, numbness, paresthesia, pre-existing deficit, right sided numbness, right sided weakness, seizure, speech problems, tingling, tremors, weakness, others Musculoskeletal: denies: back pain, gout, joint pain, joint swelling, muscle pain, muscle stiffness, neck pain, others Integumetry: denies: bruises, change in color, change in hair/nails, dryness, laceration, lesions, lumps, rash, wounds, others Allergic/Immunocompromised: denies: Difficulty Healing, Frequent Infections, Hives, Itching, others Hematologic/Lymphatic: denies: anemia, blood clots, easy bleeding, easy bruising, swollen glands, others Endocrine: denies: excessive hunger, excessive sweating, excessive thirst, excessive urination, flushing, intolerance to cold, intolerance to heat, unexplained weight gain, unexplained weight loss, others Psychiatric: denies: anxiety, bipolar disorder, depression, hopeless, panic disorder, schizophrenia, sleepless, suicidal, others All Other Systems: Reviewed and Negative Physical Exam General Appearance: No Apparent Distress, Normal HEENT: Normal ENT Inspection, Pharynx Normal, TMs Normal Neck: Full Range of Motion, Non-Tender, Normal, Normal Inspection Respiratory: Chest Non-Tender, Lungs Clear, No Accessory Muscle Use, No Respiratory Distress, Normal Breath Sounds Cardiovascular: No Edema, No JVD, No Murmur, No Gallop, Normal Peripheral Pulses, Regular Rate/Rhythm Breast Exam: Deferred Gastrointestinal: No Organomegaly, Non Tender, No Pulsatile Mass, Normal Bowel Sounds, Soft Genitalia: Deferred Pelvic: Deferred Rectal: Deferred Extremities: No calf tenderness, Normal capillary refill, Normal inspection, Normal range of motion, Non-tender, No pedal edema Musculoskeletal : Apperance: Normal Neurologic: Alert, gas meter reader II-XII nml as Tested, No Motor Deficits, Normal Affect, Normal Mood, No Sensory Deficits Cerebellar Function: Normal Reflexes: Normal Skin: Dry, Normal Color, Warm Lymphatic: No Adenopathy Was a procedure done? Was a procedure done?: No GI differential Dx Differential Diagnosis: Complete , Incomplete , Inevitable , Missed , Threatened , Abruptio placentae, Bowel Obstruction, Constipation, Ectopic , Gastroenteritis, Electrolyte Imbalance, Food Poisoning, , Hypovolemia, Other (molar , multiple gestations, CHS) X-Ray, Labs, Meds, VS Vital Signs Date Time Temp Pulse Resp B/P (MAP) Pulse Ox O2 Delivery O2 Flow Rate FiO2 01/25/25 13:25 97.9 76 17 101/61 (74) 99 97.9 01/25/25 12:50 98.7 102 18 109/69 (82) 95 98.7 Lab Test 01/25/25 13:33 Range/Units White Blood Count 4.6 4.4-10.8 10^3/uL Red Blood Count 4.72 4.0-5.20 10^6/uL Hemoglobin 14.4 12.2-16.2 g/dL Hematocrit 42.0 36.0-46.0 % Mean Corpuscular Volume 88.9 80.0-100.0 fL Mean Corpuscular Hemoglobin 30.5 28.0-32.0 pg Mean Corpuscular Hemoglobin Concent 34.4 32.0-36.0 g/dL Red Cell Distribution Width 12.3 11.8-14.3 % Platelet Count 262 140-450 10^3/uL Mean Platelet Volume 7.6 6.9-10.8 fL Neutrophils (%) (Auto) 68.2 37.0-80.0 % Lymphocytes (%) (Auto) 22.3 10.0-50.0 % Monocytes (%) (Auto) 8.4 0.0-12.0 % Eosinophils (%) (Auto) 0.6 0.0-7.0 % Basophils (%) (Auto) 0.5 0.0-2.0 % Neutrophils # (Auto) 3.2 1.6-8.6 10 ^3/uL Lymphocytes # (Auto) 1.0 0.4-5.4 10 ^3/uL Monocytes # (Auto) 0.4 0-1.3 10 ^3/uL Eosinophils # (Auto) 0 0-0.8 10 ^3/uL Basophils # (Auto) 0 0-0.2 10 ^3/uL Nucleated Red Blood Cells 0.1 % Sodium Level 136 136-145 mmol/L Potassium Level 4.0 3.5-5.1 mmol/L Chloride Level 104 98-107 mmol/L Carbon Dioxide Level 24 20-31 mmol/L Anion Gap 8 5-15 Blood Urea Nitrogen < 5 L 9-23 mg/dL Creatinine 0.61 0.550-1.02 mg/dL Glomerular Filtration Rate Calc 120 >90 mL/min BUN/Creatinine Ratio 8.2 L 10.0-20.0 Serum Glucose 84 74-106 mg/dL Calcium Level 10.6 H 8.7-10.4 mg/dL Beta HCG, Quantitative 421430.3 H 1.5-4.2 mIU/mL Time of 1ST Reevaluation: 13:08 Reevaluation 1ST: Unchanged Time of 2ND Reevaluation: 15:31 Reevaluation 2ND: Improved Patient Education/Counseling: Diagnosis, Treatment, Prognosis, Need For Follow Up Family Education/Counseling: No Family Present Departure 1 Departure Time of Disposition: 15:31 Impression: Primary Impression: Hyperemesis of Disposition: 01 HOME / SELF CARE / HOMELESS Condition: Good e-Prescriptions Ondansetron Odt 4MG Tab (ZOFRAN PO) 4 Mg Tb 4 MG PO Q4HP PRN for 3 Days, #15 TAB ODT TAB-DISSOLVE IN MOUTH, THEN SWALLOW Prov: PAT KOTHARI MD 01/25/25 Discharged With: Self Critical Care Note Critical Care Time?: No Stability Stability form required: No Heart Score Heart Score: Heart Score Response (Comments) Value History N/A 0 EKG N/A 0 Age N/A 0 Risk Factors N/A 0 Troponin N/A 0 Total 0 I personally scribed for PAT KOTHARI MD ([email or web address]) on 01/25/25 at 12:48. Electronically submitted by Thang Santos ([email or web address]). PAT KOTHARI MD January 25, 2025 12:48
[2025-01-25 13:25] VITALS: TEMP 97.9
[2025-01-25 13:38] LABS: Basophils # (auto) 0 10 ^3/uL (0-0.2); Basophils % (auto) 0.5 % (0.0-2.0); Eosinophils # (auto) 0 10 ^3/uL (0-0.8); Eosinophils % (auto) 0.6 % (0.0-7.0); Hemoglobin 14.4 g/dL (12.2-16.2); Lymphocytes % (auto) 22.3 % (10.0-50.0); Mean Corpuscular Hemoglobin 30.5 pg (28.0-32.0); Mean Corpuscular Hgb Conc. 34.4 g/dL (32.0-36.0); Mean Corpuscular Volume 88.9 fL (80.0-100.0); Monocytes # (auto) 0.4 10 ^3/uL (0-1.3); Monocytes % (auto) 8.4 % (0.0-12.0); Neutrophils # (auto) 3.2 10 ^3/uL (1.6-8.6); Neutrophils % (auto) 68.2 % (37.0-80.0); Nucleated Red Blood Cells % 0.1 %; Platelet Count (auto) 262 10^3/uL (140-450); Red Blood Cells 4.72 10^6/uL (4.0-5.20); Red Cell Distribution Width 12.3 % (11.8-14.3); White Blood Cell 4.6 10^3/uL (4.4-10.8)
[2025-01-25 13:47] LABS: Chloride 104 mmol/L (98-107); Sodium 136 mmol/L (136-145)
[2025-01-25 13:48] LABS: Anion Gap 8 (5-15); Carbon Dioxide 24 mmol/L (20-31)
--- NOTE | 2025-01-25 13:50 | DVH ---
Procedure: US OB ULTRASOUND COMP LESS 14WKS Study Date and Requested Time: 01/25/2025 12:43 PM Study Description: US OB ULTRASOUND COMP LESS 14WKS History: nausea, vomiting, Comparison: US OB ULTRASOUND COMP LESS 14WKS on DOS: 01/06/25 Technique: Multiple high resolution valero-scale images obtained of the uterus, fetus, and other gestat ional components with M-mode scanning for evaluation of heart rate. Findings: Single live intrauterine with gestational sac, and fetus visualized. heart rate of 1 56 bpm. Estimated gestational age 12 weeks/6 days based on crown-rump length of 6.6 cm. Posterior placenta is noted. 2 x 1.4 x 1.7 cm hypoechoic area adjacent to the gestational sac. Uterus measures 4.7 x 12.9 x 5.5 cm in size. Cervical os appears closed. 1.6 x 1.1 x 1.3 cm hypoechoi c uterine structure is noted inferior to gestational sac which may represent a fibroid. Bilateral ovaries are not visualized No evidence of free fluid in the cul-de-sac. Impression: Single live intrauterine with heart rate of 156 bpm. Estimated gestational age 12 wee ks/6 days with estimated date of confinement 08/03/2025. 2 x 1.4 x 1.7 cm hypoechoic area adjacent to the gestational sac. Correlate for Possible subchorionic hemorrhage
[2025-01-25 13:51] LABS: Calcium 10.6 mg/dL (8.7-10.4)
[2025-01-25 13:53] LABS: BUN/Creatinine Ratio 8.2 (10.0-20.0); Blood Urea Nitrogen < 5 mg/dL (9-23); Glucose 84 mg/dL (74-106)
[2025-01-25] MEDS ORDERED: ZOFR4T PO (15:33)
[2025-01-25] MEDS: ONDANSETRON HCL 4 MG/2 ML VIAL IV ONE (17:17)
[2025-01-25] MEDS: SODIUM CHLORIDE 0.9% 1,000 ML IV ONE (17:17)
[2025-01-25 18:07] VITALS: BP 107/69
[2025-01-25 18:08] VITALS: PULSE 87; RESP 16; O2SAT 96
== END 2025-01-25 18:14 | disposition home or self-care (01) ==
LOC: ER 12:29
DX: O21.0 Mild hyperemesis gravidarum (principal); Z3A.13 13 weeks gestation of pregnancy; Z88.0 Allergy status to penicillin; Z88.1 Allergy status to other antibiotic agents
CPT/HCPCS: 36415; 76801; 80048; 84702; 85025; 86900; 86901; 96361; 96374; 99285; J2405; J7030

== ENCOUNTER 2025-02-19 14:10 | Emergency (ER) | payer OTHER, MEDICAID ==
[~2025-02-19] VITALS: Ht 170.2 cm; Wt 64.8 kg
--- NOTE | 2025-02-19 14:37 | ED.PDOC ---
[employer] HPI Comments 34y F who presents to the ED for chief complaint of vaginal bleeding. Pt states she is currently 16 weeks , , and states she has been having vaginal bleeding since earlier today. Pt states she has not passed clots but light vaginal bright red blood. Pt otherwise denies any associated nausea, vomiting or dysuria, or associated symptoms. Pt states she did see OB yesterday and states she was having cramping yesterday was told it was to pt being constipated. Pt otherwise was seen 01/25, 1 month prior for similar symptoms and given medications and discharged. Pt otherwise denies any other symptoms at this time. Time Seen by MD: 14:25 Reviewed Notes: Medications, Allergies Allergies: Coded Allergies: Azithromycin (Verified Allergy, Unknown, 12/31/24) Penicillins (Verified Allergy, Unknown, 12/31/24) Promethazine (Verified Allergy, Unknown, 12/31/24) Home Meds Active Scripts Ondansetron Odt 4MG Tab (ZOFRAN PO) 4 Mg Tb, 4 MG PO Q4HP PRN for 3 Days, #15 TAB ODT TAB-DISSOLVE IN MOUTH, THEN SWALLOW Prov:PAT KOTHARI MD 01/25/25 Lactulose (Lactulose) 10 Gm/15 Ml Melody, 30 ML PO BID PRN, #300 ML Prov:NATALIE CAZARES 01/06/25 Ondansetron Odt 4MG Tab (ZOFRAN PO) 4 Mg Tb, 4 MG PO BID, #20 TAB ODT TAB-DISSOLVE IN MOUTH, THEN SWALLOW Prov:NATALIE CAZARES 01/06/25 Lactulose (Lactulose) 10 Gm/15 Ml Melody, 30 ML PO BID, #250 ML Prov:NATALIE CAZARES 12/31/24 Cephalexin Monohydrate (Cephalexin) 500 Mg Cap, 1 CAP PO QID, #28 CAP Prov:NATALIE CAZARES 12/31/24 Information Source: Patient Mode of Arrival: Ambulatory Brought in by: self Past Medical History PAST MEDICAL HISTORY: Denies Surgical History: Denies all surgeries COTTON PICKER History: No Pertinent COTTON PICKER History Family History Family History: Reviewed,noncontributory to illness Social History Smoker: Non-Smoker Alcohol: Denies ETOH Use Drugs: Denies Drug Use Lives In: Home Constitutional: denies: chills, diaphoresis, fatigue, fever, malaise, sweats, weakness, others EENTM: denies: blurred vision, double vision, ear bleeding, ear discharge, ear drainage, ear pain, ear ringing, eye pain, eye redness, hearing loss, mouth pain, mouth swelling, nasal discharge, nose bleeding, nose congestion, nose pain, photophobia, tearing, throat pain, throat swelling, voice changes, others Respiratory: denies: cough, hemoptysis, orthopnea, SOB at rest, shortness of breath, SOB with excertion, stridor, wheezing, others Cardiovascular: denies: chest pain, dizzy spells, diaphoresis, Dyspnea on exertion, edema, irregular heart beat, left arm pain, lightheadedness, palpitations, PND, syncope, others Gastrointestinal: denies: abdomen distended, abdominal pain, blood streaked bowels, constipated, diarrhea, dysphagia, difficulty swallowing, hematemesis, melena, nausea, poor appetite, poor fluid intake, rectal bleeding, rectal pain, vomiting, others Genitourinary: reports: abnormal vagina bleeding; denies: burning, dyspareunia, dysuria, flank pain, frequency, hematuria, incontinence, pain, , vagina discharge, urgency, others Neurological: denies: dizziness, fainting, headache, left sided numbness, left sided weakness, numbness, paresthesia, pre-existing deficit, right sided numbness, right sided weakness, seizure, speech problems, tingling, tremors, weakness, others Musculoskeletal: denies: back pain, gout, joint pain, joint swelling, muscle pain, muscle stiffness, neck pain, others Integumetry: denies: bruises, change in color, change in hair/nails, dryness, laceration, lesions, lumps, rash, wounds, others Allergic/Immunocompromised: denies: Difficulty Healing, Frequent Infections, Hives, Itching, others Hematologic/Lymphatic: denies: anemia, blood clots, easy bleeding, easy bruising, swollen glands, others Endocrine: denies: excessive hunger, excessive sweating, excessive thirst, excessive urination, flushing, intolerance to cold, intolerance to heat, unexplained weight gain, unexplained weight loss, others Psychiatric: denies: anxiety, bipolar disorder, depression, hopeless, panic disorder, schizophrenia, sleepless, suicidal, others All Other Systems: Reviewed and Negative Physical Exam General Appearance: Other (dry lips) HEENT: Normal ENT Inspection, Pharynx Normal, TMs Normal Neck: Full Range of Motion, Non-Tender, Normal, Normal Inspection Respiratory: Chest Non-Tender, Lungs Clear, No Accessory Muscle Use, No Respiratory Distress, Normal Breath Sounds Cardiovascular: No Edema, No JVD, No Murmur, No Gallop, Normal Peripheral Pulses, Regular Rate/Rhythm Breast Exam: Deferred Gastrointestinal: Tenderness (gravid uterus, tenderness to palpation) Genitalia: Deferred Pelvic: Deferred Rectal: Deferred Extremities: No calf tenderness, Normal capillary refill, Normal inspection, Normal range of motion, Non-tender, No pedal edema Musculoskeletal : Apperance: Normal Neurologic: Alert, die holder II-XII nml as Tested, No Motor Deficits, Normal Affect, Normal Mood, No Sensory Deficits Cerebellar Function: Normal Reflexes: Normal Skin: Dry, Normal Color, Warm Lymphatic: No Adenopathy Was a procedure done? Was a procedure done?: No Differential Diagnosis (COTTON PICKER) Vaginal Bleeding: - Complete, - Incomplete, - Inevitable, - Missed, - Threatened, Abruptio Placentae, Blood Loss Anemia, Cervicitis, Myomatous Uterus, Placenta Previa, Precipitous Hct, Trauma, UTI, Vaginitis, Other (subchorionic hemorrhage) X-Ray, Labs, Meds, VS Vital Signs Date Time Temp Pulse Resp B/P (MAP) Pulse Ox O2 Delivery O2 Flow Rate FiO2 02/19/25 14:58 98.3 107 20 103/72 (82) 95 98.3 02/19/25 14:58 107 18 95 Room Air* 0 21 02/19/25 14:22 97.9 107 17 108/72 (84) 98 97.9 Lab Test 02/19/25 14:37 02/19/25 14:22 Range/Units White Blood Count 7.5 4.4-10.8 10^3/uL Red Blood Count 4.59 4.0-5.20 10^6/uL Hemoglobin 13.9 12.2-16.2 g/dL Hematocrit 41.1 36.0-46.0 % Mean Corpuscular Volume 89.5 80.0-100.0 fL Mean Corpuscular Hemoglobin 30.3 28.0-32.0 pg Mean Corpuscular Hemoglobin Concent 33.8 32.0-36.0 g/dL Red Cell Distribution Width 12.9 11.8-14.3 % Platelet Count 267 140-450 10^3/uL Mean Platelet Volume 7.9 6.9-10.8 fL Neutrophils (%) (Auto) 73.7 37.0-80.0 % Lymphocytes (%) (Auto) 19.9 10.0-50.0 % Monocytes (%) (Auto) 5.6 0.0-12.0 % Eosinophils (%) (Auto) 0.5 0.0-7.0 % Basophils (%) (Auto) 0.3 0.0-2.0 % Neutrophils # (Auto) 5.6 1.6-8.6 10 ^3/uL Lymphocytes # (Auto) 1.5 0.4-5.4 10 ^3/uL Monocytes # (Auto) 0.4 0-1.3 10 ^3/uL Eosinophils # (Auto) 0 0-0.8 10 ^3/uL Basophils # (Auto) 0 0-0.2 10 ^3/uL Nucleated Red Blood Cells 0.2 % Sodium Level 139 136-145 mmol/L Potassium Level 3.8 3.5-5.1 mmol/L Chloride Level 104 98-107 mmol/L Carbon Dioxide Level 26 20-31 mmol/L Anion Gap 9 5-15 Blood Urea Nitrogen < 5 L 9-23 mg/dL Creatinine 0.54 L 0.550-1.02 mg/dL Glomerular Filtration Rate Calc 124 >90 mL/min BUN/Creatinine Ratio 9.3 L 10.0-20.0 Serum Glucose 84 74-106 mg/dL Calcium Level 10.7 H 8.7-10.4 mg/dL Beta HCG, Quantitative 07794.5 H 1.5-4.2 mIU/mL Urine Color Colorless Yellow Urine Clarity Turbid H Clear Urine pH 7.0 5.0-9.0 Urine Specific Anna 1.005 1.001-1.035 Urine Protein Negative Negative Urine Ketones Negative Negative Urine Blood Negative Negative /uL Urine Nitrite Negative Negative Urine Bilirubin Negative Negative Urine Urobilinogen Normal Negative mg/dL Urine Leukocyte Esterase 2+ Negative /uL Urine RBC 2 0 - 4 /hpf Urine Microscopic WBC 2 0-5 /HPF Urine Squamous Epithelial Cells Few <5 /hpf Urine Bacteria Mod H None Seen /hpf Urine Hyaline Casts Few 0 - 2 /lpf Urine Glucose Normal Normal mg/dL Current Medications Medications (Trade) Dose Ordered Sig/Amirah Route Start Time Stop Time Status Last Admin Acetaminophen (Tylenol Tablet) 650 mg ONCE ONCE PO 02/19/25 14:30 02/19/25 14:31 DC 02/19/25 14:52 Sodium Chloride 1,000 ml @ 1,000 mls/hr Q1H ONCE IV 02/19/25 14:30 02/19/25 15:29 DC 02/19/25 14:53 Time of 1ST Reevaluation: 16:25 Reevaluation 1ST: Resolved Patient Education/Counseling: Diagnosis, Treatment, Prognosis, Need For Follow Up Family Education/Counseling: No Family Present Comments pt reports that she was told by her OB that the cramps are not from misab, but from constipation. the workup is normal. her IUP is healthy. she has not bled here. pt feels much reassured with the US. she is stable for discharge Departure 1 Departure Time of Disposition: 16:26 Impression: Primary Impression: Threatened Disposition: 01 HOME / SELF CARE / HOMELESS Condition: Good Discharged With: Self Critical Care Note Critical Care Time?: Yes (45 min-critical care time only) Critical care comment: due to concerns for deterioration of patient's condition, the care required my highest level of attention and readiness. i assessed the patient's condition, reviewed relevant documents, communicated with medical personnel, ordered the proper tests and treatments, reassessed for results and response to treatments, spoke to family and consultants and formulated a plan of care Stability Stability form required: No Heart Score Heart Score: Heart Score Response (Comments) Value History N/A 0 EKG N/A 0 Age N/A 0 Risk Factors N/A 0 Troponin N/A 0 Total 0 I personally scribed for PAT KOTHARI MD ([email or web address]) on 02/19/25 at 14:37. Electronically submitted by Kiesha Hall ([email or web address]). PAT KOTHARI MD Feb 19, 2025 14:37
[2025-02-19 14:51] LABS: Basophils # (auto) 0 10 ^3/uL (0-0.2); Basophils % (auto) 0.3 % (0.0-2.0); Eosinophils # (auto) 0 10 ^3/uL (0-0.8); Eosinophils % (auto) 0.5 % (0.0-7.0); Hematocrit 41.1 % (36.0-46.0); Hemoglobin 13.9 g/dL (12.2-16.2); Lymphocytes # (auto) 1.5 10 ^3/uL (0.4-5.4); Lymphocytes % (auto) 19.9 % (10.0-50.0); Mean Corpuscular Hemoglobin 30.3 pg (28.0-32.0); Mean Corpuscular Hgb Conc. 33.8 g/dL (32.0-36.0); Mean Corpuscular Volume 89.5 fL (80.0-100.0); Monocytes # (auto) 0.4 10 ^3/uL (0-1.3); Monocytes % (auto) 5.6 % (0.0-12.0); Neutrophils # (auto) 5.6 10 ^3/uL (1.6-8.6); Neutrophils % (auto) 73.7 % (37.0-80.0); Nucleated Red Blood Cells % 0.2 %; Platelet Count (auto) 267 10^3/uL (140-450); Red Blood Cells 4.59 10^6/uL (4.0-5.20); Red Cell Distribution Width 12.9 % (11.8-14.3); White Blood Cell 7.5 10^3/uL (4.4-10.8)
[2025-02-19] MEDS: ACETAMINOPHEN 325 MG TAB PO ONE (14:52)
[2025-02-19] MEDS: SODIUM CHLORIDE 0.9% 1,000 ML IV ONE (14:53)
[2025-02-19 14:58] VITALS: PULSE 107; RESP 18; O2SAT 95
[2025-02-19 15:00] LABS: Chloride 104 mmol/L (98-107); Potassium 3.8 mmol/L (3.5-5.1); Sodium 139 mmol/L (136-145)
[2025-02-19 15:01] LABS: Anion Gap 9 (5-15); Carbon Dioxide 26 mmol/L (20-31)
[2025-02-19 15:06] LABS: Glucose 84 mg/dL (74-106)
[2025-02-19 15:14] LABS: BUN/Creatinine Ratio 9.3 (10.0-20.0); Blood Urea Nitrogen < 5 mg/dL (9-23); Calcium 10.7 mg/dL (8.7-10.4)
[2025-02-19 15:53] LABS: Urine Bacteria MOD /hpf (None Seen); Urine Blood Negative /uL (Negative); Urine Clarity Turbid (Clear); Urine Color Colorless (Yellow); Urine Hyaline Cast FEW /lpf (0 - 2); Urine Protein, UAD Negative (Negative); Urine Specific Gravity 1.005 (1.001-1.035); Urine Squamous Epithelial Cell FEW /hpf (<5); Urine Urobilinogen Normal (Negative); Urine WBC 2 /HPF (0-5)
--- NOTE | 2025-02-19 16:12 | DVH ---
EXAM: US OB ULTRASOUND COMP GTR 14 WKS HISTORY: vag bleeding TECHNIQUE: Multiple real-time grayscale images of the gravid uterus with duplex Doppler color flow an d M-mode spectral analysis. COMPARISON: None FINDINGS/IMPRESSION: IUP single live fetus at 16 weeks 2 days average ultrasound age (AUA) based on composite averages of the BPD, head circumference, abdominal circumference and femur length Age based on (early ultrasound) : MEASUREMENTS: BPD: 3.4 cm GA: 16w 3d HC: 12.3 cm GA: 16w 1d AC: 9.9 cm GA: 16w 0d FL: 2.1 cm GA: 16w 2d Estimated weight 145.12 grams; 5 oz. heart rate 155 beats per minute MVP 3.1 cm ANATOMIC SURVEY: Transverse Presentation Posterior placenta without previa or abruption Cervix is closed measuring 4.2 cm Focal myometrial contraction is noted. No acute abnormality noted.
[2025-02-19 16:28] VITALS: BP 97/57; PULSE 81; RESP 18; TEMP 98.4; O2SAT 99
[2025-02-19] MEDS ORDERED: CEPHALEXIN 250 MG CAP PO ONE (16:30)
== END 2025-02-19 16:38 | disposition home or self-care (01) ==
LOC: ER 14:10
DX: O20.0 Threatened abortion (principal); Z3A.16 16 weeks gestation of pregnancy; Z88.1 Allergy status to other antibiotic agents; Z88.0 Allergy status to penicillin; Z36.3 Encounter for antenatal screening for malformations; Z79.899 Other long term (current) drug therapy
CPT/HCPCS: 36415; 76805; 80048; 81001; 84702; 85025; 86900; 86901; 96360; 99284; J7030; 99291

== ENCOUNTER 2025-03-02 06:25 | Emergency (ER) | payer OTHER, MEDICAID ==
[~2025-03-02] VITALS: Ht 170.2 cm; Wt 63.6 kg
[2025-03-02 07:18] LABS: Chloride 105 mmol/L (98-107); Potassium 3.6 mmol/L (3.5-5.1)
[2025-03-02 07:19] LABS: Anion Gap 9 (5-15); Calcium 9.7 mg/dL (8.7-10.4); Carbon Dioxide 22 mmol/L (20-31); Sodium 136 mmol/L (136-145)
[2025-03-02 07:24] LABS: BUN/Creatinine Ratio 9.8 (10.0-20.0); Basophils # (auto) 0 10 ^3/uL (0-0.2); Basophils % (auto) 0.5 % (0.0-2.0); Eosinophils # (auto) 0 10 ^3/uL (0-0.8); Eosinophils % (auto) 0.6 % (0.0-7.0); Glucose 92 mg/dL (74-106); Hematocrit 37.6 % (36.0-46.0); Hemoglobin 13.1 g/dL (12.2-16.2); Lymphocytes # (auto) 1.1 10 ^3/uL (0.4-5.4); Lymphocytes % (auto) 17.2 % (10.0-50.0); Mean Corpuscular Hemoglobin 31.1 pg (28.0-32.0); Mean Corpuscular Hgb Conc. 34.7 g/dL (32.0-36.0); Mean Corpuscular Volume 89.8 fL (80.0-100.0); Monocytes # (auto) 0.6 10 ^3/uL (0-1.3); Monocytes % (auto) 8.8 % (0.0-12.0); Neutrophils # (auto) 4.8 10 ^3/uL (1.6-8.6); Neutrophils % (auto) 72.9 % (37.0-80.0); Nucleated Red Blood Cells % 0.1 %; Platelet Count (auto) 239 10^3/uL (140-450); Red Blood Cells 4.19 10^6/uL (4.0-5.20); White Blood Cell 6.5 10^3/uL (4.4-10.8)
[2025-03-02 07:25] LABS: Blood Urea Nitrogen 5 mg/dL (9-23)
--- NOTE | 2025-03-02 08:11 | ED.PDOC ---
History of Present Illness HPI Comments A 34 year old female presents to the ED c/o flu-like symptoms. Patient states she is currently about 17 weeks and has been experiencing a cough, congestion, body aches, nausea, and vomiting for the past 3 days. Patient reports she went to [facility] yesterday where labs, a chest x ray, and a COVID-19 swabs was done which resulted in her being positive for COVID-19 and was prescribed Zofran 4mg and Paxlovid, but notes there has been no improvement in her symptoms as of yet. Denies fevers chills night sweats unintentional weight loss Denies persistent chest pain, shortness of breath, leg swelling Denies history of asthma nor any breathing conditions Denies history of pneumonia Denies recent international travel Chief Complaint: Flu like Time Seen by MD: 06:52 Primary Care Provider: NISH Reviewed Notes: Nurses Notes, Medications, Allergies Allergies: Coded Allergies: Azithromycin (Verified Allergy, Unknown, 12/31/24) Penicillins (Verified Allergy, Unknown, 12/31/24) Promethazine (Verified Allergy, Unknown, 12/31/24) Home Meds Active Scripts Ondansetron Odt 4MG Tab (ZOFRAN PO) 4 Mg Tb, 4 MG PO Q4HP PRN for 3 Days, #15 TAB ODT TAB-DISSOLVE IN MOUTH, THEN SWALLOW Prov:PAT KOTHARI MD 01/25/25 Lactulose (Lactulose) 10 Gm/15 Ml Melody, 30 ML PO BID PRN, #300 ML Prov:NATALIE CAZARES 01/06/25 Ondansetron Odt 4MG Tab (ZOFRAN PO) 4 Mg Tb, 4 MG PO BID, #20 TAB ODT TAB-DISSOLVE IN MOUTH, THEN SWALLOW Prov:NATALIE CAZARES 01/06/25 Lactulose (Lactulose) 10 Gm/15 Ml Melody, 30 ML PO BID, #250 ML Prov:NATALIE CAZARES 12/31/24 Cephalexin Monohydrate (Cephalexin) 500 Mg Cap, 1 CAP PO QID, #28 CAP Prov:NATALIE CAZARES 12/31/24 Information Source: Patient Mode of Arrival: Ambulatory Severity: Moderate Timing: Days Duration: Since onset, Days Prehospital treatment: None Medication Refill: For: Other (Flu-like symptoms) Past Medical History PAST MEDICAL HISTORY: Asthma Surgical History: Denies all surgeries LOOP CUTTER History: No Pertinent LOOP CUTTER History Family History Family History: Reviewed,noncontributory to illness Social History Smoker: Non-Smoker Alcohol: Denies ETOH Use Drugs: Denies Drug Use Lives In: Home Constitutional: denies: chills, diaphoresis, fatigue, fever, malaise, sweats, weakness, others EENTM: reports: nose congestion; denies: blurred vision, double vision, ear bleeding, ear discharge, ear drainage, ear pain, ear ringing, eye pain, eye redness, hearing loss, mouth pain, mouth swelling, nasal discharge, nose bleeding, nose pain, photophobia, tearing, throat pain, throat swelling, voice changes, others Respiratory: reports: cough; denies: hemoptysis, orthopnea, SOB at rest, shortness of breath, SOB with excertion, stridor, wheezing, others Gastrointestinal: reports: nausea, vomiting; denies: abdomen distended, abdominal pain, blood streaked bowels, constipated, diarrhea, dysphagia, difficulty swallowing, hematemesis, melena, poor appetite, poor fluid intake, rectal bleeding, rectal pain, others Genitourinary: denies: abnormal vagina bleeding, burning, dyspareunia, dysuria, flank pain, frequency, hematuria, incontinence, pain, , vagina discharge, urgency, others Neurological: denies: dizziness, fainting, headache, left sided numbness, left sided weakness, numbness, paresthesia, pre-existing deficit, right sided numbness, right sided weakness, seizure, speech problems, tingling, tremors, weakness, others Musculoskeletal: reports: muscle pain; denies: back pain, gout, joint pain, joint swelling, muscle stiffness, neck pain, others Integumetry: denies: bruises, change in color, change in hair/nails, dryness, laceration, lesions, lumps, rash, wounds, others Allergic/Immunocompromised: denies: Difficulty Healing, Frequent Infections, Hives, Itching, others Hematologic/Lymphatic: denies: anemia, blood clots, easy bleeding, easy bruising, swollen glands, others Endocrine: denies: excessive hunger, excessive sweating, excessive thirst, excessive urination, flushing, intolerance to cold, intolerance to heat, unexplained weight gain, unexplained weight loss, others Psychiatric: denies: anxiety, bipolar disorder, depression, hopeless, panic disorder, schizophrenia, sleepless, suicidal, others All Other Systems: Reviewed and Negative Physical Exam General Appearance: No Apparent Distress, Normal HEENT: Normal ENT Inspection, Pharynx Normal, TMs Normal Neck: Full Range of Motion, Non-Tender, Normal, Normal Inspection Respiratory: Chest Non-Tender, Lungs Clear, No Accessory Muscle Use, No Respiratory Distress, Normal Breath Sounds Cardiovascular: No Edema, No JVD, No Murmur, No Gallop, Normal Peripheral Pulses, Regular Rate/Rhythm Breast Exam: Deferred Gastrointestinal: No Organomegaly, Non Tender, No Pulsatile Mass, Normal Bowel Sounds, Soft Genitalia: Deferred Pelvic: Deferred Rectal: Deferred Extremities: No calf tenderness, Normal capillary refill, Normal inspection, Normal range of motion, Non-tender, No pedal edema Musculoskeletal : Apperance: Normal Neurologic: Alert, nurse case manager II-XII nml as Tested, No Motor Deficits, Normal Affect, Normal Mood, No Sensory Deficits Cerebellar Function: Normal Reflexes: Normal Skin: Dry, Normal Color, Warm Lymphatic: No Adenopathy Was a procedure done? Was a procedure done?: No Differential Dx Considerations may include: Viral syndrome, COVID-19, URI, bronchitis, tonsillitis, pharyngitis, otitis media, sinusitis, Influenza A/B, dehydration, electrolyte imbalance, UTI, acute cystitis X-Ray, Labs, Meds, VS Vital Signs Date Time Temp Pulse Resp B/P (MAP) Pulse Ox O2 Delivery O2 Flow Rate FiO2 03/02/25 10:06 89 16 106/63 (77) 98 03/02/25 08:57 98.7 109 20 90/43 (59) 95 98.7 03/02/25 08:57 109 20 95 Room Air* 0 21 03/02/25 06:50 98.0 116 16 111/66 (81) 99 98.0 Lab Test 03/02/25 08:15 03/02/25 06:53 Range/Units Urine Color Yellow Yellow Urine Clarity Turbid H Clear Urine pH 6.0 5.0-9.0 Urine Specific Coin 1.018 1.001-1.035 Urine Protein Negative Negative Urine Ketones Negative Negative Urine Blood Negative Negative /uL Urine Nitrite Negative Negative Urine Bilirubin Negative Negative Urine Urobilinogen Normal Negative mg/dL Urine Leukocyte Esterase 1+ Negative /uL Urine RBC 4 0 - 4 /hpf Urine Microscopic WBC 4 0-5 /HPF Urine Squamous Epithelial Cells Mod <5 /hpf Urine Bacteria Few H None Seen /hpf Urine Mucus Few None Seen Urine Glucose Normal Normal mg/dL Urine Test Positive Negative White Blood Count 6.5 4.4-10.8 10^3/uL Red Blood Count 4.19 4.0-5.20 10^6/uL Hemoglobin 13.1 12.2-16.2 g/dL Hematocrit 37.6 36.0-46.0 % Mean Corpuscular Volume 89.8 80.0-100.0 fL Mean Corpuscular Hemoglobin 31.1 28.0-32.0 pg Mean Corpuscular Hemoglobin Concent 34.7 32.0-36.0 g/dL Red Cell Distribution Width 13.0 11.8-14.3 % Platelet Count 239 140-450 10^3/uL Mean Platelet Volume 7.6 6.9-10.8 fL Neutrophils (%) (Auto) 72.9 37.0-80.0 % Lymphocytes (%) (Auto) 17.2 10.0-50.0 % Monocytes (%) (Auto) 8.8 0.0-12.0 % Eosinophils (%) (Auto) 0.6 0.0-7.0 % Basophils (%) (Auto) 0.5 0.0-2.0 % Neutrophils # (Auto) 4.8 1.6-8.6 10 ^3/uL Lymphocytes # (Auto) 1.1 0.4-5.4 10 ^3/uL Monocytes # (Auto) 0.6 0-1.3 10 ^3/uL Eosinophils # (Auto) 0 0-0.8 10 ^3/uL Basophils # (Auto) 0 0-0.2 10 ^3/uL Nucleated Red Blood Cells 0.1 % Sodium Level 136 136-145 mmol/L Potassium Level 3.6 3.5-5.1 mmol/L Chloride Level 105 98-107 mmol/L Carbon Dioxide Level 22 20-31 mmol/L Anion Gap 9 5-15 Blood Urea Nitrogen 5 L 9-23 mg/dL Creatinine 0.51 L 0.550-1.02 mg/dL Glomerular Filtration Rate Calc 126 >90 mL/min BUN/Creatinine Ratio 9.8 L 10.0-20.0 Serum Glucose 92 74-106 mg/dL Calcium Level 9.7 8.7-10.4 mg/dL Current Medications Medications (Trade) Dose Ordered Sig/Amirah Route Start Time Stop Time Status Last Admin Sodium Chloride 500 ml @ 1,000 mls/hr Q30M ONCE IV 03/02/25 08:15 03/02/25 08:44 DC 03/02/25 08:38 Ondansetron HCl (Zofran) 4 mg PRN ONCE IV 03/02/25 08:15 03/02/25 08:16 DC 03/02/25 08:38 Sodium Chloride 1,000 ml @ 1,000 mls/hr Q1H ONCE IV 03/02/25 09:30 03/02/25 10:29 DC 03/02/25 09:22 X-Ray, Labs, Meds, VS Comment A 34 year old female presents to the ED c/o flu-like symptoms for the past 3 days. Patient arrives alert and oriented, ABC's intact, afebrile, vital signs stable, saturating well in room air Peripheral IV insertion+ labs were ordered. CBC was ordered to exclude anemia, blood loss, or infection. BMP was ordered to exclude electrolyte abnormalities, renal failure, dehydration, hyperglycemia Urinalysis was ordered to rule out UTI or hematuria. Urine Labs in the ED showed: LEUKO 1+ Patient was given: NS 1.5L IV, Zofran 4mg IV. Tolerated medications with no adverse reaction. Additional MDM Review of External, Non-ED records: External records reviewed. Patient provided her medical records from [facility] for review by me. Discussion with independent historian (EMS, family) history obtained from the patient. Chronic conditions affecting care: Asthma Social determinants of health affecting care: None Consideration of admission (observation or admission): I considered escalation of care to admission for this patient, however given the reassuring workup, the patient is safe for outpatient management. Discussion with the Radiology: No Tests considered but not performed: None Prescription medication considered but not given: None Images Reviewed?: Images reviewed and evaluated by me Reevaluation 1ST: Improved Patient Education/Counseling: Diagnosis, Treatment, Need For Follow Up Family Education/Counseling: Diagnosis, Treatment, Need For Follow Up SEPSIS Sepsis Screen Date sepsis recognized/suspect: Mar 02, 2025 Time Sepsis recognized/suspect: 0632 Recent Procedure: No On Antibiotic Therapy: No Respiratory Rate >20: No Heart Rate >90: Yes Temp<36 C (96.8 F) or >38.3 C: No SBP <90 or MAP <65 mmHG: No New Acute Mental Status Change: No Is the patient on CPAP, BIPAP,: No Physician Orders Heplock Iv (03/02/25 08:02) Vital Signs Date Time Temp Pulse Resp B/P (MAP) Pulse Ox O2 Delivery O2 Flow Rate FiO2 03/02/25 10:06 89 16 106/63 (77) 98 03/02/25 08:57 98.7 109 20 90/43 (59) 95 98.7 03/02/25 08:57 109 20 95 Room Air* 0 21 03/02/25 06:50 98.0 116 16 111/66 (81) 99 98.0 Laboratory Tests Test 03/02/25 06:53 White Blood Count 6.5 10^3/uL (4.4-10.8) Medications Medications Dose Ordered Sig/Amirah Route Start Time Stop Time Status Last Admin Dose Admin Ondansetron HCl 4 mg PRN ONCE IV 03/02/25 08:15 03/02/25 08:16 DC 03/02/25 08:38 Sodium Chloride 500 ml @ 1,000 mls/hr Q30M ONCE IV 03/02/25 08:15 03/02/25 08:44 DC 03/02/25 08:38 Sodium Chloride 1,000 ml @ 1,000 mls/hr Q1H ONCE IV 03/02/25 09:30 03/02/25 10:29 DC 03/02/25 09:22 Departure 1 Departure Time of Disposition: 11:23 Impression: Primary Impression: COVID Additional Impression: Nausea Disposition: 01 HOME / SELF CARE / HOMELESS Condition: Stable Additional Instructions: Follow up with PCP in 1-2 days. Return to ED for any new or worsening symptoms. Discharged With: Self Critical Care Note Critical Care Time?: No Stability Stability form required: No I personally scribed for MARIE DORSEY CUSTOM BOW MAKER ([email or web address]) on 03/02/25 at 08:11. Electronically submitted by All Rivas ([email or web address]). I personally scribed for MARIE DORSEY CUSTOM BOW MAKER ([email or web address]) on 03/02/25 at 11:43. Electronically submitted by All Rivas ([email or web address]). MARIE DORSEY NP Mar 02, 2025 08:11
[2025-03-02] MEDS: SODIUM CHLORIDE 0.9% 500 ML IV ONE (08:38)
[2025-03-02] MEDS: ONDANSETRON HCL 4 MG/2 ML VIAL IV ONE (08:38)
[2025-03-02 08:45] LABS: Urine Bacteria FEW /hpf (None Seen); Urine Blood Negative /uL (Negative); Urine Clarity Turbid (Clear); Urine Color Yellow (Yellow); Urine Mucus FEW (None Seen); Urine Protein, UAD Negative (Negative); Urine Specific Gravity 1.018 (1.001-1.035); Urine Squamous Epithelial Cell MOD /hpf (<5); Urine Urobilinogen Normal (Negative); Urine WBC 4 /HPF (0-5)
[2025-03-02 08:57] VITALS: PULSE 109; RESP 20; O2SAT 95
[2025-03-02] MEDS: SODIUM CHLORIDE 0.9% 1,000 ML IV ONE (09:22)
[2025-03-02 11:56] VITALS: BP 99/55; PULSE 90; RESP 16; TEMP 98.9; O2SAT 99
== END 2025-03-02 12:04 | disposition home or self-care (01) ==
LOC: ER 06:25
DX: O98.512 Other viral diseases complicating pregnancy, second trimester (principal); O99.512 Diseases of the respiratory system complicating pregnancy, second trimester; U07.1 COVID-19; J45.909 Unspecified asthma, uncomplicated; Z3A.17 17 weeks gestation of pregnancy; Z88.1 Allergy status to other antibiotic agents; Z88.0 Allergy status to penicillin; Z79.899 Other long term (current) drug therapy
CPT/HCPCS: 36415; 80048; 81001; 81025; 85025; 96361; 96374; 99283; J2405; J7030; J7040

== ENCOUNTER 2025-03-27 11:47 | Emergency (ER) | payer OTHER, MEDICAID ==
[~2025-03-27] VITALS: Ht 167.6 cm; Wt 59.0 kg
--- NOTE | 2025-03-27 12:07 | ED.PDOC ---
HPI (NEURO) HPI Comments 34 y.o female with PMHx of seizures and asthma, presents to the ED via EMS s/p seizure episode today. EMS reports patient's brother in law called 911 today, states he is unsure if patient had a seizure as she has absent episodes and was found in her room. Unsure how long patient had possible seizure. Patient was postictal on scene for EMS with positive incontinence and tongue trauma. Patient presents with a stutter unsure if this is her norm but was able to answer all questions. Patient's last Keppra dosage was in November of 2024 as she was advised to discontinue use due to current 18 weeks gestation. Patient at this time denies having a neurologist and was never placed on another seizure medication. Patient denies any nausea, vomiting, SOB or chest pain. Chief Complaint: Seizure Time Seen by MD: 11:51 Primary Care Provider: NISH Mcnamara Notes: Nurses Notes, System Configuration Specialist Notes, Medications, Allergies Information Source: Patient, Emergency Med Personnel Mode of Arrival: EMS Severity: Moderate Timing: Hours Duration: Since onset Seizure Location: Generalized Onset: At rest Circumstances: Spontaneous Before: Normal During: Incontinence (Bladder), Trauma: Tongue After: Normal Mentation History of: Seizure Disorder Associated Signs and Symptoms: Other (leg pain ) Past Medical History PAST MEDICAL HISTORY: Asthma, Seizures Past Medical History (Other): acid reflux Surgical History: Denies all surgeries REFRIGERATION MECHANIC History: No Pertinent REFRIGERATION MECHANIC History Family History Family History: Reviewed,noncontributory to illness Social History Smoker: Non-Smoker Alcohol: Denies ETOH Use Drugs: Denies Drug Use Lives In: Home Constitutional: denies: chills, diaphoresis, fatigue, fever, malaise, sweats, weakness, others EENTM: denies: blurred vision, double vision, ear bleeding, ear discharge, ear drainage, ear pain, ear ringing, eye pain, eye redness, hearing loss, mouth pain, mouth swelling, nasal discharge, nose bleeding, nose congestion, nose pain, photophobia, tearing, throat pain, throat swelling, voice changes, others Respiratory: denies: cough, hemoptysis, orthopnea, SOB at rest, shortness of breath, SOB with excertion, stridor, wheezing, others Cardiovascular: denies: chest pain, dizzy spells, diaphoresis, Dyspnea on exertion, edema, irregular heart beat, left arm pain, lightheadedness, palpitations, PND, syncope, others Gastrointestinal: denies: abdomen distended, abdominal pain, blood streaked bowels, constipated, diarrhea, dysphagia, difficulty swallowing, hematemesis, melena, nausea, poor appetite, poor fluid intake, rectal bleeding, rectal pain, vomiting, others Genitourinary: reports: incontinence, ; denies: abnormal vagina bleeding, burning, dyspareunia, dysuria, flank pain, frequency, hematuria, pain, vagina discharge, urgency, others Neurological: reports: seizure; denies: dizziness, fainting, headache, left sided numbness, left sided weakness, numbness, paresthesia, pre-existing deficit, right sided numbness, right sided weakness, speech problems, tingling, tremors, weakness, others Musculoskeletal: reports: others (leg pain ); denies: back pain, gout, joint pain, joint swelling, muscle pain, muscle stiffness, neck pain Integumetry: denies: bruises, change in color, change in hair/nails, dryness, laceration, lesions, lumps, rash, wounds, others Allergic/Immunocompromised: denies: Difficulty Healing, Frequent Infections, Hives, Itching, others Hematologic/Lymphatic: denies: anemia, blood clots, easy bleeding, easy bruising, swollen glands, others Endocrine: denies: excessive hunger, excessive sweating, excessive thirst, excessive urination, flushing, intolerance to cold, intolerance to heat, unexplained weight gain, unexplained weight loss, others Psychiatric: denies: anxiety, bipolar disorder, depression, hopeless, panic disorder, schizophrenia, sleepless, suicidal, others All Other Systems: Reviewed and Negative Physical Exam General Appearance: Mild Distress HEENT: Normal ENT Inspection, Pharynx Normal, TMs Normal Neck: Full Range of Motion, Non-Tender, Normal, Normal Inspection Respiratory: Chest Non-Tender, Lungs Clear, No Accessory Muscle Use, No Respiratory Distress, Normal Breath Sounds Cardiovascular: No Edema, No JVD, No Murmur, No Gallop, Normal Peripheral Pulses, Regular Rate/Rhythm Breast Exam: Deferred Gastrointestinal: Non Tender, No Pulsatile Mass, Normal Bowel Sounds, Soft, Other (Gravid uterus) Genitalia: Deferred Pelvic: Deferred Rectal: Deferred Extremities: No calf tenderness, Normal capillary refill, Normal inspection, Normal range of motion, Non-tender, No pedal edema Musculoskeletal : Apperance: Normal Neurologic: Alert, almond blancher II-XII nml as Tested, No Motor Deficits, Normal Affect, Normal Mood, No Sensory Deficits Cerebellar Function: Normal Reflexes: Normal Skin: Dry, Normal Color, Warm Lymphatic: No Adenopathy Was a procedure done? Was a procedure done?: No Differential Diagnosis (SZ) Seizure: Psychogenic Seizure, Hypoglycemia, Syncope, Encephalopathy, Epilepsy- Break Through, Epilepsy-Status X-Ray, Labs, Meds, VS Vital Signs Date Time Temp Pulse Resp B/P (MAP) Pulse Ox O2 Delivery O2 Flow Rate FiO2 03/27/25 12:17 98.4 85 16 96/55 (69) 95 98.4 03/27/25 12:17 85 16 98 Room Air* 0 21 03/27/25 11:56 98.6 105 16 123/70 (87) 97 98.6 Lab Test 03/27/25 12:09 Range/Units White Blood Count 5.8 4.4-10.8 10^3/uL Red Blood Count 3.97 L 4.0-5.20 10^6/uL Hemoglobin 12.5 12.2-16.2 g/dL Hematocrit 36.1 36.0-46.0 % Mean Corpuscular Volume 91.1 80.0-100.0 fL Mean Corpuscular Hemoglobin 31.5 28.0-32.0 pg Mean Corpuscular Hemoglobin Concent 34.5 32.0-36.0 g/dL Red Cell Distribution Width 13.8 11.8-14.3 % Platelet Count 231 140-450 10^3/uL Mean Platelet Volume 7.9 6.9-10.8 fL Neutrophils (%) (Auto) 75.2 37.0-80.0 % Lymphocytes (%) (Auto) 19.5 10.0-50.0 % Monocytes (%) (Auto) 4.4 0.0-12.0 % Eosinophils (%) (Auto) 0.4 0.0-7.0 % Basophils (%) (Auto) 0.5 0.0-2.0 % Neutrophils # (Auto) 4.4 1.6-8.6 10 ^3/uL Lymphocytes # (Auto) 1.1 0.4-5.4 10 ^3/uL Monocytes # (Auto) 0.3 0-1.3 10 ^3/uL Eosinophils # (Auto) 0 0-0.8 10 ^3/uL Basophils # (Auto) 0 0-0.2 10 ^3/uL Nucleated Red Blood Cells 0.1 % Sodium Level 137 136-145 mmol/L Potassium Level 3.9 3.5-5.1 mmol/L Chloride Level 106 98-107 mmol/L Carbon Dioxide Level 23 20-31 mmol/L Anion Gap 8 5-15 Blood Urea Nitrogen < 5 L 9-23 mg/dL Creatinine 0.56 0.550-1.02 mg/dL Glomerular Filtration Rate Calc 123 >90 mL/min BUN/Creatinine Ratio 8.9 L 10.0-20.0 Serum Glucose 74 74-106 mg/dL Calcium Level 10.2 8.7-10.4 mg/dL IV Hep-Lock was established Seizure precautions were placed on the patient. The patient is now more alert and able to answer questions and her significant other is at bedside. The patient's CBC is within normal limits The chemistry panel is within normal limits We did contact Dr. Perez who is the OBGYN on-call and she has stated that the pa tient can be started on Keppra again. The patient states that she was on Keppra 500 mg twice a day We loaded the patient with Keppra 1000 mg IV piggyback The patient is being discharged and will follow up with her primary care doctor as well as Dr. Perez The patient will return to the emergency department's condition worsens. A pelvic ultrasound was done and it shows: IMPRESSION: IUP single live fetus at 21 weeks 1 day AUA corresponding to an LENORE of 08/06/2025. No abnormality is detected. Focal bulging along the anterior uterus may represent transient myometrial contraction. No placenta previa or abruption. Images Reviewed?: Images reviewed and evaluated by me Time of 1ST Reevaluation: 13:00 Reevaluation 1ST: Unchanged Time of 2ND Reevaluation: 14:26 Reevaluation 2ND: Improved Patient Education/Counseling: Diagnosis, Treatment, Prognosis, Need For Follow Up Family Education/Counseling: No Family Present Departure 1 Departure Time of Disposition: 14:26 Impression: Primary Impression: Breakthrough seizure Additional Impression: Qualified Codes: Z3A.21 - 21 weeks gestation of Disposition: HOME / SELF CARE / HOMELESS Condition: Fair e-Prescriptions Levetiracetam (KEPPRA TABLET) 500 Mg Tb 500 MG PO BID for 60 Days, #120 TAB Prov: JANAY STEPHENS MD 03/27/25 Discharged With: Self Critical Care Note Critical Care Time?: Yes (35 min-critical care time only) Stability Stability form required: No Heart Score Heart Score: Heart Score Response (Comments) Value History N/A 0 EKG N/A 0 Age N/A 0 Risk Factors N/A 0 Troponin N/A 0 Total 0 I personally scribed for JANAY STEPHENS MD ([email or web address]) on 03/27/25 at 12:07. Electronically submitted by Lois Kwong ([facility]). JANAY STEPHENS MD Mar 27, 2025 12:07
[2025-03-27 12:17] VITALS: PULSE 85; RESP 16; TEMP 98.4; O2SAT 98
[2025-03-27 12:42] LABS: Hematocrit 36.1 % (36.0-46.0); Hemoglobin 12.5 g/dL (12.2-16.2); Mean Corpuscular Hemoglobin 31.5 pg (28.0-32.0); Mean Corpuscular Volume 91.1 fL (80.0-100.0); Nucleated Red Blood Cells % 0.1 %
[2025-03-27 12:49] LABS: Chloride 106 mmol/L (98-107); Potassium 3.9 mmol/L (3.5-5.1); Sodium 137 mmol/L (136-145)
[2025-03-27 12:50] LABS: Anion Gap 8 (5-15); Calcium 10.2 mg/dL (8.7-10.4); Carbon Dioxide 23 mmol/L (20-31)
[2025-03-27 12:55] LABS: Glucose 74 mg/dL (74-106)
[2025-03-27 13:24] LABS: BUN/Creatinine Ratio 8.9 (10.0-20.0); Blood Urea Nitrogen < 5 mg/dL (9-23)
--- NOTE | 2025-03-27 13:38 | DVH ---
OB ULTRASOUND COMPLETE: HISTORY: seizure TECHNIQUE: Multiple real-time grayscale images of the gravid uterus with duplex Doppler color flow an d M-mode spectral analysis. COMPARISON: US OB ULTRASOUND COMP GTR 14 WKS on DOS: 02/19/25 FINDINGS: IUP single live fetus at 21 weeks 1 day average ultrasound age (AUA) based on composite averages of t he BPD, head circumference, abdominal circumference and femur length MEASUREMENTS: BPD: 4.9 cm GA: 20 w 5 d HC: 18.8 cm GA: 21 w 1 d AC: 15.8 cm GA: 20 w 6 d FL: 3.7 cm GA: 21 w 5 d Estimated weight 407 grams; 14 oz, 33rd percentile. heart rate 153 beats per minute MVP 5.2 ANATOMIC SURVEY: No gross abnormalities are seen. Cephalic Presentation Posterior placenta without previa or abruption. Focal bulging along the anterior uterine wall. Cervix is normal measuring 3.5 cm. IMPRESSION: IUP single live fetus at 21 weeks 1 day AUA corresponding to an LENORE of 08/06/2025. No abnormality is detected. Focal bulging along the anterior uterus may represent transient myometrial contraction. No placenta p revia or abruption.
[2025-03-27] MEDS ORDERED: KEP500T PO (14:29)
[2025-03-27] MEDS: levETIRAcetam 1000 mg/100ml 100 ML IV ONE (14:49)
[2025-03-27 15:40] VITALS: BP 97/58; PULSE 82; RESP 16; O2SAT 98
== END 2025-03-27 15:47 | disposition home or self-care (01) ==
LOC: EDBD 11:47 → ER 11:47
DX: O99.352 Diseases of the nervous system complicating pregnancy, second trimester (principal); O99.512 Diseases of the respiratory system complicating pregnancy, second trimester; G40.909 Epilepsy, unspecified, not intractable, without status epilepticus; J45.909 Unspecified asthma, uncomplicated; Z3A.21 21 weeks gestation of pregnancy
CPT/HCPCS: 36415; 76805; 80048; 85025; 96374; 99285; J1953; 99291

== ENCOUNTER 2025-03-29 05:42 | Observation (INO) | payer OTHER, MEDICAID ==
[~2025-03-29] VITALS: Ht 170.2 cm; Wt 65.8 kg
[~2025-03-29 05:42] MED LIST changes: +KEP500T PO
--- NOTE | 2025-03-29 06:53 | DVH ---
OB ULTRASOUND <14 WEEKS: HISTORY: Placental integrity TECHNIQUE: Multiple real-time grayscale sonographic images of the pelvis with duplex Doppler color f low, spectral and M-mode analysis. COMPARISON: None FINDINGS: The cervix measures 3.6 cm in length and closed. IUP single fetus at 21 weeks 6 days by dates. Presentation is breech and placental location posterio r without evidence of previa or abruption. heart rate detected at 155 beats per minute. MVP: 3.7 cm IMPRESSION: 1. IUP single live fetus 21 weeks 6 days by dates. No acute abnormality detected.
[2025-03-29 07:37] LABS: Urine Amorphous Crystal FEW /hpf (None Seen); Urine Protein, UAD Negative (Negative)
--- NOTE | 2025-03-29 14:23 | DVHDS2 ---
Physician Discharge Progress N Final Diagnosis: abd pain cramping 21wks Operations or Procedures: Operations or Procedures nst ,sono Condition on Discharge: Good Disposition: Home Discharge Instructions: Diet: Regular Activity: No Restrictions, As Tolerated Follow Up/Referral: Please follow up with primary OBGYN as soon as possible Medications: na Follow Up Care: Specialist: 1w Discharge Statement: "Patient was advised to return to the ER or call 911 if any headaches, dizzines s, shortness of breath, chest pain, abdominal pain, bleeding, fevers, or worsening of medical condition. Patient was counseled about treatment plan, medications, possible side effects, patientverbalized understanding. All questions were answered to the best of my ability. This discharge took greater then 30 minutes in planning, reviewing documentation, counseling the patient, and discussing with other team members." Visit Coding OBGYN Date of Service: Mar 28, 2025 Billing Provider: ELY ZAMBRANO DO SOLDER MAKING LABORER Common Visit Codes: [id number] OBS CARE (HIGH) SOLDER MAKING LABORER Procedure Codes: 10192-31- NON-STRESS TEST ELY ZAMBRANO DO Mar 29, 2025 14:23
== END 2025-03-29 07:18 | disposition home or self-care (01) ==
LOC: LDRP 05:42
PROVIDERS: ADMIT Obstetrics & Gynecology; ATTEND Obstetrics & Gynecology
DX: O26.892 Other specified pregnancy related conditions, second trimester (principal); R10.9 Unspecified abdominal pain; Z3A.21 21 weeks gestation of pregnancy; Z98.890 Other specified postprocedural states; Z79.899 Other long term (current) drug therapy
CPT/HCPCS: 76815; 81001; 81002; 87086; G0378; 59025